=== PATIENT | female | born 1990 | race Caucasian/White ===

== ENCOUNTER → 2019-09-22 10:05 | Outpatient (CLI) | payer OTHER, MEDICAID, SELFPAY | PROVIDERS: Visit Provider Physician Assistant | DX: R30.0 Dysuria (principal) | CPT/HCPCS: 87086 ==

== ENCOUNTER → 2019-12-06 10:06 | Outpatient (CLI) | payer OTHER, MEDICAID, SELFPAY | PROVIDERS: PCP Physician Assistant; Referring Provider Physician Assistant; Visit Provider Family Medicine | DX: E11.628 Type 2 diabetes mellitus with other skin complications (principal); S81.802A Unspecified open wound, left lower leg, initial encounter; L03.116 Cellulitis of left lower limb; E11.40 Type 2 diabetes mellitus with diabetic neuropathy, unspecified; E66.01 Morbid (severe) obesity due to excess calories; Z68.43 Body mass index [BMI] 50.0-59.9, adult | CPT/HCPCS: 87070; 87075; 87077; 87186; 87205; 97597; 99203; 99213 ==

== ENCOUNTER → 2019-12-13 13:53 | Outpatient (CLI) | payer OTHER, MEDICAID, SELFPAY | PROVIDERS: PCP Physician Assistant; Referring Provider Physician Assistant; Visit Provider Family Medicine | DX: E11.628 Type 2 diabetes mellitus with other skin complications (principal); S81.802A Unspecified open wound, left lower leg, initial encounter; L03.116 Cellulitis of left lower limb; L08.9 Local infection of the skin and subcutaneous tissue, unspecified | CPT/HCPCS: 36415; 85025; 85651; 86140; 97597; 99213 ==

== ENCOUNTER → 2019-12-13 14:59 | Outpatient (CLI) | payer OTHER, MEDICAID, SELFPAY ==
[2019-12-13 16:35] LABS: Add Manual Diff / Slide Review NO; Basophils Absolute Auto 200 /uL (0-100); Basophils Percent Auto 1.3 % (0-2); Eosinophils Absolute Auto 500 /uL (0-450); Eosinophils Percent Auto 2.6 % (2-4); Hematocrit 35.2 % (36-46); Hemoglobin 11.5 g/dL (12.0-16.0); Lymphocytes Absolute Auto 4600 /uL (1100-4500); Lymphocytes Percent Auto 25.6 % (25-40); Mean Corpuscular HGB Conc 32.7 % (30-36); Mean Corpuscular Hemoglobin 25.4 PG (26-34); Mean Corpuscular Volume 77.9 fL (80-100); Monocytes Absolute Auto 1600 /uL (0-900); Monocytes Percent Auto 8.7 % (3-14); Neutrophils Absolute Auto 11100 /uL (1500-7000); Neutrophils Percent Auto 61.8 % (50-75); Platelet Count 272 X10^3/uL (150-400); Red Blood Cell Count 4.52 X10^6/uL (4.0-5.2); Red Cell Distribution Width 14.8 % (11.6-14.8)
[2019-12-13 17:08] LABS: Erythrocyte Sedimentation Rate 50 MM/HR (0-20)
== END ==
PROVIDERS: PCP Physician Assistant; Referring Provider Family Medicine; Visit Provider Family Medicine
DX: L08.9 Local infection of the skin and subcutaneous tissue, unspecified (principal)
CPT/HCPCS: 36415; 85025; 85651; 86140

== ENCOUNTER → 2019-12-20 14:46 | Outpatient (CLI) | payer OTHER, MEDICAID, SELFPAY | PROVIDERS: PCP Physician Assistant; Referring Provider Physician Assistant; Visit Provider Family Medicine | DX: L53.9 Erythematous condition, unspecified (principal); E11.622 Type 2 diabetes mellitus with other skin ulcer; L97.221 Non-pressure chronic ulcer of left calf limited to breakdown of skin | CPT/HCPCS: 99212; 99213 ==

== ENCOUNTER → 2021-07-12 12:41 | Outpatient (CLI) | payer OTHER, MEDICAID, SELFPAY ==
[2021-07-12 13:50] LABS: Hemoglobin A1C% w Est Avg Glu 5.5 % (4.0-6.0)
== END ==
PROVIDERS: PCP Physician Assistant; Referring Provider Physician Assistant; Visit Provider Physician Assistant
DX: F90.0 Attention-deficit hyperactivity disorder, predominantly inattentive type (principal)
CPT/HCPCS: 36415; 83036

== ENCOUNTER → 2021-07-23 10:08 | Outpatient (CLI) | payer OTHER, MEDICAID, SELFPAY ==
--- NOTE | 2021-07-23 10:09 | DI.RAD.S_ITS ---
PROCEDURE: XR WRIST RT MIN 3V INDICATIONS: rigth wrist pain around ulnar styloid TECHNIQUE: 4 views of the wrist were acquired. COMPARISON: None. FINDINGS: Bones: No fractures or dislocations. No suspicious bony lesions. Scaphoid view: Scaphoid is intact. Soft tissues: No suspicious soft tissue calcifications. IMPRESSION: No fracture. No osseous lesion. If symptoms and/or clinical suspicion for pathology persists, further assessment with repeat radiographs (7-10 days) or advanced imaging (e.g. CT, MRI or bone scan) should be considered. Dictated by: Jacqueline Mccoy MD, PhD on 07/23/2021 at 10:46 Approved by: Jacqueline Mccoy MD, PhD on 07/23/2021 at 10:48
== END ==
PROVIDERS: PCP Physician Assistant; Referring Provider Physician Assistant; Visit Provider Physician Assistant
DX: S60.211A Contusion of right wrist, initial encounter (principal); X58.XXXA Exposure to other specified factors, initial encounter
CPT/HCPCS: 73110

== ENCOUNTER → 2021-08-03 12:15 | Outpatient (CLI) | payer OTHER, MEDICAID, SELFPAY ==
[2021-08-03 12:30] LABS: Add Manual Diff / Slide Review NO; Basophils Absolute Auto 100 /uL (0-100); Basophils Percent Auto 0.7 % (0-2); Eosinophils Absolute Auto 200 /uL (0-450); Eosinophils Percent Auto 0.9 % (2-4); Hematocrit 35.4 % (36-46); Hemoglobin 11.2 g/dL (12.0-16.0); Lymphocytes Absolute Auto 4200 /uL (1100-4500); Mean Corpuscular HGB Conc 31.8 % (30-36); Mean Corpuscular Hemoglobin 24.8 PG (26-34); Mean Corpuscular Volume 78.1 fL (80-100); Monocytes Absolute Auto 1100 /uL (0-900); Monocytes Percent Auto 6.5 % (3-14); Neutrophils Absolute Auto 11200 /uL (1500-7000); Neutrophils Percent Auto 66.9 % (50-75); Platelet Count 402 X10^3/uL (150-400); Red Blood Cell Count 4.53 X10^6/uL (4.0-5.2); Red Cell Distribution Width 14.9 % (11.6-14.8); White Blood Cell Count 16.7 X10^3/uL (4.5-11.0)
[2021-08-03 12:52] LABS: Iron 27 ug/dL (37-170)
[2021-08-03 13:06] LABS: Percent Iron Saturation 8 % (15-50); Total Iron Binding Capacity 360 ug/dL (265-497)
[2021-08-03 13:28] LABS: Ferritin 29 ng/mL (6-137)
== END ==
PROVIDERS: PCP Physician Assistant; Referring Provider Physician Assistant; Visit Provider Physician Assistant
DX: D50.9 Iron deficiency anemia, unspecified (principal)
CPT/HCPCS: 36415; 82728; 83540; 83550; 85025

== ENCOUNTER 2022-01-09 13:13 | Emergency (ER) | payer OTHER, MEDICAID, SELFPAY ==
[2022-01-09 13:16] VITALS: BP 132/65; PULSE 82; RESP 16; TEMP 36.6; O2SAT 98; BMI 47.4
--- NOTE | 2022-01-09 13:22 | DI.RAD.S_ITS ---
PROCEDURE: XR CHEST 1V INDICATIONS: chest pain TECHNIQUE: One view of the chest was acquired. COMPARISON: [facility], CR, XR CHEST 2 VIEWS, 09/03/2015, 16:39. FINDINGS: Surgical changes and devices: None. Lungs and pleura: Lungs are clear. No pleural effusions or pneumothorax. Mediastinum: Mediastinal contours appear normal. Heart size is normal. Bones and chest wall: No suspicious bony lesions. Overlying soft tissues appear unremarkable. IMPRESSION: No acute cardiopulmonary disease process. Dictated by: Jacqueline Mccoy MD, PhD on 01/09/2022 at 13:54 Approved by: Jacqueline Mccoy MD, PhD on 01/09/2022 at 13:54
[2022-01-09 13:38] VITALS: BP 140/74; PULSE 83; O2SAT 100
[2022-01-09 13:39] LABS: Add Manual Diff / Slide Review NO; Basophils Absolute Auto 100 /uL (0-100); Basophils Percent Auto 1.2 % (0-2); Eosinophils Absolute Auto 100 /uL (0-450); Hematocrit 36.7 % (36-46); Hemoglobin 12.2 g/dL (12.0-16.0); Lymphocytes Absolute Auto 3600 /uL (1100-4500); Lymphocytes Percent Auto 29.2 % (25-40); Mean Corpuscular HGB Conc 33.2 % (30-36); Mean Corpuscular Volume 78.2 fL (80-100); Monocytes Absolute Auto 1300 /uL (0-900); Monocytes Percent Auto 10.4 % (3-14); Neutrophils Absolute Auto 7100 /uL (1500-7000); Neutrophils Percent Auto 58.2 % (50-75); Platelet Count 348 X10^3/uL (150-400); Red Blood Cell Count 4.69 X10^6/uL (4.0-5.2); Red Cell Distribution Width 15.2 % (11.6-14.8); White Blood Cell Count 12.2 X10^3/uL (4.5-11.0)
[2022-01-09 13:55] LABS: Alanine Aminotransferase 17 IU/L (<35); Albumin 4.6 g/dL (3.5-5.0); Albumin Globulin Ratio 1.2 (1.0-2.8); Alkaline Phosphatase 72 U/L (38-126); Aspartate Aminotransferase 23 IU/L (14-36); BUN Creatinine Ratio 14.3 (6-22); Bilirubin Total 0.4 mg/dL (0.2-1.3); Blood Urea Nitrogen 11 mg/dL (7-17); Calcium 9.2 mg/dL (8.4-10.2); Carbon Dioxide 31 mmol/L (22-32); Chloride 101 mmol/L (98-107); Creatine Kinase 35 U/L (30-135); Estimated Glomerular Filt Rate > 60 mL/min (>60); Globulin 3.9 g/dL (1.7-4.1); Glucose 100 mg/dL (70-100); HEMOLYSIS < 15 (0-50); Lipase 48 U/L (23-300); Magnesium 1.8 mg/dL (1.6-2.3); Potassium 3.7 mmol/L (3.4-5.1); Sodium 138 mmol/L (137-145); Total Protein 8.5 g/dL (6.3-8.2)
[2022-01-09 14:00] VITALS: BP 141/80; PULSE 89; RESP 18; O2SAT 98
[2022-01-09 14:06] LABS: Troponin I < 0.012 ng/mL (0.01-0.034)
[2022-01-09 14:11] LABS: COVID19 -Nasal RAPID Negative (Negative)
[2022-01-09 14:30] VITALS: BP 126/71; PULSE 81; RESP 19; O2SAT 96
--- NOTE | 2022-01-09 14:38 | ED.CHESTPAIN ---
HPI - Chest Pain <Rebeka Parra PA-C - Last Filed: 01/09/22 18:40> General Chief Complaint: Chest Pain Stated Complaint: Chest pains, sent from phys Time Seen by Provider: 01/09/22 13:48 Source: patient Mode of arrival: Ambulatory Limitations: no limitations History of Present Illness HPI narrative: Patient is a 31-year-old female presenting with chest pain and pressure for the last 4 days. She describes the sensation as a 10 lb weight on her chest with occasional pain that resolves immediately. Pressure is constant and is not affected by inspiration, expiration, movement, or positional changes. She states that the pressure was not present when she woke up this morning but gradually reappeared throughout the day. She has a history of anxiety and took 0.5 mg of lorazepam on Friday that did not affect the chest pressure. She had similar symptoms in August that resolved on its own after a few days. She also does water aerobics regularly. She is in no pain currently. She was seen by her PCP this morning who told her to come into the ER for further evaluation. Related Data Home Medications Medication Instructions Recorded Confirmed pregabalin 100 mg capsule (Lyrica) 100 mg PO TID 09/22/19 08/29/21 lisinopril 20 1 tab PO DAILY 07/23/21 08/29/21 mg-hydrochlorothiazide 25 mg tablet dextroamphetamine-amphetamine ER 10 mg PO DAILY cap 08/29/21 08/29/21 10 mg 24hr capsule,extend release dextroamphetamine-amphetamine ER 30 mg PO DAILY cap 08/29/21 08/29/21 30 mg 24hr capsule,extend release zolpidem 5 mg tablet 5 mg PO BEDTIME PRN tab 08/29/21 08/29/21 Allergies Allergy/AdvReac Type Severity Reaction Status Date / Time cephalexin [From Keflex] Allergy Intermediate Rash Verified 01/09/22 13:21 linezolid Allergy Intermediate Rash Verified 01/09/22 13:21 metronidazole [From Flagyl] AdvReac Intermediate Vomiting Verified 08/29/21 09:46 Review of Systems <Rebeka Parra PA-C - Last Filed: 01/09/22 18:40> Review of Systems ROS Unobtainable: All systems reviewed & are unremarkable except as noted in HPI and below Constitutional Constitutional: Denies chills, Denies fatigue, Denies fever(s), Denies headache(s) and Denies weakness Eyes Eyes: Denies change in vision, Denies irritation and Denies loss of vision ENT Ears, Nose, Mouth, and Throat: Denies dizziness, Denies headache(s), Denies neck pain, Denies sore throat and Denies throat swelling Cardiovascular Cardiovascular: Reports as per HPI, Reports chest pain, Reports chest pain at rest, Denies syncope, Denies rapid heart rate, Denies irregular heart rhythm, Denies lightheadedness, Denies radiating jaw, neck or arm pain, Denies palpitations, Denies dyspnea and Denies orthopnea Respiratory Respiratory: Denies chest congestion, Denies cough, Denies pain on inspiration, Denies dyspnea and Denies wheezing Gastrointestinal Gastrointestinal: Denies abdominal pain, Reports dyspepsia, Denies diarrhea, Denies nausea and Denies vomiting Genitourinary Genitourinary: Denies hematuria, Denies flank pain, Denies urinary incontinence and Denies urinary urgency Musculoskeletal Musculoskeletal: Denies back pain, Denies muscle weakness, Denies neck pain, Denies numbness and Denies tingling Integumentary/Breasts Skin/Breast: Denies pruritus, Denies erythema, Denies rash and Denies wounds Neurologic Neurologic: Denies dizziness, Denies syncope, Denies headache(s), Denies loss of vision, Denies numbness, Denies tingling and Denies weakness Psychiatric Psychiatric: Reports anxiety Endocrine Endocrine: Denies fatigue, Denies flushing and Denies palpitations Hematologic/Lymphatic Hematologic/Lymphatic: Reports system reviewed and no additional complaints, except as documented Allergic/Immunologic Allergic/Immunologic: Denies urticaria, Denies throat swelling and Denies wheezing Patient History <Rebeka Parra PA-C - Last Filed: 01/09/22 18:40> Medical History Abnormal uterine bleeding ADHD Amenorrhea BP (high blood pressure) Chronic diarrhea Contusion of right wrist DM type 2 (diabetes mellitus, type 2) Elevated erythrocyte sedimentation rate Endometrial polyp Fibroids Herpesviral infection Hirsutism History of PCOS Hyperlipidemia Iron deficiency anemia Menorrhagia with regular cycle Neuropathy Rectal bleeding Uterine leiomyoma UTI (urinary tract infection) Vitamin B 12 deficiency Surgical History H/O colonoscopy History of bone marrow biopsy History of endoscopy History of tonsillectomy and adenoidectomy Hx of cholecystectomy Family History Father Myocardial infarction Diabetes mellitus Heart disease Mother Diverticulitis Brother ADHD Social History Smoking Status: Never smoker Smoking Status: Never smoker alcohol intake frequency: 0-2 drinks per day Substance Use Type: does not use Exam <Rebeka Parra PA-C - Last Filed: 01/09/22 18:40> Narrative Exam Narrative: GENERAL: 31 year old patient appears stated age. Well-developed patient, in mild distress. HEAD: Atraumatic. Normocephalic. EYES: Pupils equal round and reactive. Extraocular motions intact. No scleral icterus. No injection or drainage. ENT: Nose without bleeding, purulent drainage. Throat without erythema, tonsillar hypertrophy or exudate. Airway patent. NECK: Trachea midline. Non tender CARDIOVASCULAR: Regular rate and rhythm without murmurs, gallops, or rubs. Tender to palpation on right anterior chest wall. RESPIRATORY: Clear to auscultation. Breath sounds equal bilaterally. No wheezes, rales, or rhonchi. GASTROINTESTINAL: Abdomen soft, non-tender, nondistended. EXTREMITIES: No edema or joint tenderness. BACK: Nontender without deformity or crepitance. No flank tenderness. NEURO: AOx3. SKIN: No rash or erythema of visible areas Initial Vital Signs Initial Vital Signs: Vital Signs Temperature 97.8 F 01/09/22 13:16 Pulse Rate 82 01/09/22 13:16 Respiratory Rate 16 01/09/22 13:16 Blood Pressure 132/65 01/09/22 13:16 Pulse Oximetry 98 01/09/22 13:16 Course <Rebeka Parra PA-C - Last Filed: 01/09/22 18:40> Orders Ordered: ED Orders 01/09/22 13:22 XR chest 1V Stat EKG-12 Lead Stat 01/09/22 13:27 Complete Blood Count AUTO DIFF Stat Comprehensive Metabolic Panel Stat Lipase Stat Magnesium Stat Troponin & CK Cardiac Panel Stat 01/09/22 13:45 COVID19 -Nasal RAPID/Pre-Proc Stat Vital Signs Vital signs: Vital Signs - 8 hr 01/09/22 13:16 01/09/22 13:38 01/09/22 14:00 Temperature 97.8 F Pulse Rate 82 83 89 Respiratory Rate 16 18 Blood Pressure 132/65 140/74 141/80 H Pulse Oximetry 98 100 98 01/09/22 14:30 01/09/22 15:00 01/09/22 15:17 Temperature Pulse Rate 81 77 76 Respiratory Rate 19 20 18 Blood Pressure 126/71 119/63 119/63 Pulse Oximetry 96 98 100 MDM - Chest Pain <Rebeka Parra PA-C - Last Filed: 01/09/22 18:40> Lab Data Result diagrams: 01/09/22 13:27 01/09/22 13:27 Labs: Lab Results 01/09/22 01/09/22 01/09/22 Range/Units 13:27 13:27 13:45 WBC 12.2 H (4.5-11.0) X10^3/uL RBC 4.69 (4.0-5.2) X10^6/uL Hgb 12.2 (12.0-16.0) g/dL Hct 36.7 (36-46) % MCV 78.2 L (80-100) fL MCH 26.0 (26-34) PG MCHC 33.2 (30-36) % RDW 15.2 H (11.6-14.8) % Plt Count 348 (150-400) X10^3/uL Neut % (Auto) 58.2 (50-75) % Lymph % (Auto) 29.2 (25-40) % [place] % (Auto) 10.4 (3-14) % Eos % (Auto) 1.0 L (2-4) % Baso % (Auto) 1.2 (0-2) % Neut # (Auto) 7100 H (8552-6198) /uL Lymph # (Auto) 3600 (1568-2117) /uL [place] # (Auto) 1300 H (0-900) /uL Eos # (Auto) 100 (0-450) /uL Baso # (Auto) 100 (0-100) /uL Sodium 138 (137-145) mmol/L Potassium 3.7 (3.4-5.1) mmol/L Chloride 101 (98-107) mmol/L Carbon Dioxide 31 (22-32) mmol/L BUN 11 (7-17) mg/dL Creatinine 0.77 (0.52-1.04) mg/dL Estimated GFR > 60 (>60) mL/min BUN/Creatinine Ratio 14.3 (6-22) Glucose 100 (70-100) mg/dL Calcium 9.2 (8.4-10.2) mg/dL Magnesium 1.8 (1.6-2.3) mg/dL Total Bilirubin 0.4 (0.2-1.3) mg/dL AST 23 (14-36) IU/L ALT 17 (<35) IU/L Alkaline Phosphatase 72 (38-126) U/L Total Creatine Kinase 35 (30-135) U/L CK-MB (CK-2) TNP CK-MB (CK-2) Rel Index TNP Troponin I < 0.012 (0.01-0.034) ng/mL Total Protein 8.5 H (6.3-8.2) g/dL Albumin 4.6 (3.5-5.0) g/dL Globulin 3.9 (1.7-4.1) g/dL Albumin/Globulin Ratio 1.2 (1.0-2.8) Lipase 48 (23-300) U/L SARS-CoV-2 (PCR) Negative (Negative) MDM Narrative Medical decision making narrative: Patient is a 31-year-old female presenting with chest pain and pressure for 4 days. All labs and imaging came back as normal. On physical exam her right midsternal anterior chest wall is tender to palpation. Based under HPI and physical exam this is likely a muscle strain of her chest wall. A differential diagnosis could be chest pressure due to anxiety. I instructed her to rest, ice, and to take ibuprofen as needed. She should follow-up with her PCP if chest pressure does not improve within a few days. She was instructed to return to the ER with worsening symptoms of increasing chest pain, shortness of breath, or fever. Patient verbalized understanding of discharge diagnosis and return precautions. . Discharge Plan Departure Patient Disposition: Home Clinical Impression: Chest pain Qualifiers: Chest pain type: unspecified Qualified Code(s): R07.9 - Chest pain, unspecified Chest wall muscle strain Qualifiers: Encounter type: initial encounter Qualified Code(s): S29.011A - Strain of muscle and tendon of front wall of thorax, initial encounter Instructions: DI for Muscle Strain, DI for Chest Pain Activity Restrictions/Additional Instructions: *You have been diagnosed with chest wall pain and muscle strain. You can take ibuprofen with food every 4-6 hours as needed for pain and drink plenty of fluids. You can also ice the area for 15 minutes every 4-6 hours. Please rest and refrain from exercise until chest pressure and pain subsides. Please return to the ER if your chest pressure continues to worsen, or if you have any concerning symptoms such as sharp chest pain, shortness of breath, or fever. *What to do: *Please continue to take your regular medications as directed. [ ] New medication prescriptions sent to your pharmacy: [ ] [ ] New medication written as a paper prescription [X] No new medications given *Please follow up with your primary care provider in 2-3 days, call for an appointment. Let them know you were seen in the Emergency Department and that we ask that you be seen in follow up. We will electronically transmit a record of today's note if your PCP is in our system *If you do not have a primary care provider please contact the [facility] at [phone] and they can help get you set up with a doctor in the community. *Return to Emergency Department if you should have any new, worsening or concerning symptoms, such as [fever greater than 101 F, shaking chills, worsening pain, persistent vomiting or other bothersome symptoms] Prescriptions: No Action pregabalin [Lyrica] 100 mg capsule 100 mg PO TID 0RF lisinopril-hydrochlorothiazide 20-25 mg tablet 1 tab PO DAILY 0RF dextroamphetamine-amphetamine 30 mg capsule,extended release 24hr 30 mg PO DAILY 0RF Label Comments: TAKE 1 CAPSULE BY MOUTH IN THE MORNING DAILY FOR 30 DAYS dextroamphetamine-amphetamine 10 mg capsule,extended release 24hr 10 mg PO DAILY 0RF Label Comments: TAKE 1 CAPSULE BY MOUTH IN THE MORNING ONCE DAILY - TO BE TAKEN WITH 30MG ADDERAL XL CAPSULES FOR 30 DAYS zolpidem 5 mg tablet 5 mg PO BEDTIME PRN0RF Referrals: Viki Mccarthy PA-C [Primary Care Provider] -
[2022-01-09 15:00] VITALS: BP 119/63; PULSE 77; RESP 20; O2SAT 98
[2022-01-09 15:17] VITALS: BP 119/63; PULSE 76; RESP 18; O2SAT 100
== END 2022-01-09 15:18 | disposition home or self-care (01) ==
PROVIDERS: Emergency Medicine; Emergency Provider Physician Assistant; PCP Physician Assistant
DX: R07.9 Chest pain, unspecified (principal); S29.011A Strain of muscle and tendon of front wall of thorax, initial encounter; X58.XXXA Exposure to other specified factors, initial encounter; Z20.822 Contact with and (suspected) exposure to COVID-19
CPT/HCPCS: 36415; 71045; 80053; 82550; 83690; 83735; 84484; 85025; 87635; 93005; 93010; 99283; 99284; C9803

== ENCOUNTER → 2022-06-11 13:02 | Outpatient (CLI) | payer OTHER, MEDICAID, SELFPAY ==
[2022-06-11 13:27] LABS: Semen 30 min. Liquification? Yes
[2022-06-11 13:28] LABS: Final Volume 0.5 mL; Initial Volume 1.5 mL
== END ==
PROVIDERS: Referring Provider Obstetrics & Gynecology; Visit Provider Obstetrics & Gynecology
DX: N97.0 Female infertility associated with anovulation (principal)
CPT/HCPCS: 58323

== ENCOUNTER → 2022-11-29 12:08 | Outpatient (CLI) | payer OTHER, SELFPAY ==
--- NOTE | 2022-11-29 12:10 | DI.US.S_ITS ---
PROCEDURE: US OB <= 14 WEEKS FETUS INDICATIONS: DATES OUTSIDE/PRIOR DATING DATA: Last menstrual period (LMP): October 06, 2022. LMP-based estimated date of delivery (MARGUERITE): July 22, 2023. First dating scan (date and location): November 29, 2022. Estimated date of delivery (MARGUERITE) from first dating scan: July 29, 2023. TECHNIQUE: Real-time scanning was performed of the fetus and maternal pelvic organs, with image documentation. Endovaginal scanning was also performed to better visualize the fetus and maternal ovaries. COMPARISON: [facility], US, PELVIC COMPLETE, 10/30/2022, 9:15. FINDINGS: Embryo: There is a single intrauterine gestational sac measuring approximately 5 weeks and 3 days based off mean gestational sac diameter of approximately 0.7 cm. No pole seen. No yolk sac visualized. Heart rate: Not applicable Maternal organs: Ovaries demonstrate 2 complex right ovarian cyst. Largest measures approximately 2.7 x 1.7 x 2.5 cm. Left ovary is normal. There is a posterior uterine fibroid measuring 2.6 x 2.5 x 3.2 cm. IMPRESSION: 1. Single intrauterine gestational sac identified measuring approximately 5 weeks and 3 days based mean gestational sac diameter. No pole or cardiac activity identified at this time. Recommend short interval follow-up ultrasound in 14 days to document expected progression of . 2. Complicated right ovarian cysts. 3. A 3.2 cm posterior uterine fibroid. We strive to produce accurate, complete, and clear reports of imaging services. To assist us in improving patient care, this report was composed using standard report templates and voice recognition software. Therefore, it may contain abnormal punctuation, insertions and/or omissions. Occasional wrong-word or sound-alike substitutions may occur. Though we review the report and make efforts to correct it, we do recommend that the report be read carefully in proper context to recognize any text inaccuracies. Dictated by: Edward Amador M.D. on 11/29/2022 at 13:02 Approved by: Edward Amador M.D. on 11/29/2022 at 13:07
== END ==
PROVIDERS: Referring Provider Obstetrics & Gynecology; Visit Provider Obstetrics & Gynecology
DX: Z36.87 Encounter for antenatal screening for uncertain dates (principal); O34.81 Maternal care for other abnormalities of pelvic organs, first trimester; N83.291 Other ovarian cyst, right side; O34.11 Maternal care for benign tumor of corpus uteri, first trimester; D25.9 Leiomyoma of uterus, unspecified; Z3A.01 Less than 8 weeks gestation of pregnancy
CPT/HCPCS: 76801; 76817

== ENCOUNTER → 2022-12-11 15:12 | Outpatient (CLI) | payer OTHER, SELFPAY ==
[2022-12-11 16:27] LABS: HCG Quantitative /Beta subunit 14081 mIU/mL
[2022-12-12 06:10] LABS: Labcorp Hemoglobin (Hb) A1c 5.9 % (4.8-5.6)
== END ==
PROVIDERS: Referring Provider Obstetrics & Gynecology; Visit Provider Obstetrics & Gynecology
DX: O20.9 Hemorrhage in early pregnancy, unspecified (principal)
CPT/HCPCS: 83036; 84702

== ENCOUNTER → 2022-12-12 16:10 | Outpatient (CLI) | payer OTHER, SELFPAY ==
--- NOTE | 2022-12-12 16:11 | DI.US.S_ITS ---
PROCEDURE: US OB <= 14 WEEKS FETUS INDICATIONS: early , check viability OUTSIDE/PRIOR DATING DATA: Last menstrual period (LMP): 10/15/2022 LMP-based estimated date of delivery (MARGUERITE): 07/22/2023 First dating scan (date and location): 11/29/2022 Estimated date of delivery (MARGUERITE) from first dating scan: 07/29/2023 TECHNIQUE: Real-time scanning was performed of the fetus and maternal pelvic organs, with image documentation. Endovaginal scanning was also performed to better visualize the fetus and maternal ovaries. COMPARISON: [facility], US, US OB <= 14 WEEKS FETUS, 12/11/2022, 15:07. FINDINGS: Single intrauterine gestational sac without internal contents. No evidence of implantation bleed. There is a posterior uterine fibroid measuring 4.0 x 3.4 x 3.0 cm. Right ovarian cyst measures 2.7 cm. Left ovary unremarkable. Both ovaries have appropriate echotexture and vascularity. No adnexal mass or free fluid. IMPRESSION: Small intrauterine gestational sac without internal contents. Differential possibilities include normal early , demise, and pseudo sac with non-visualized ectopic . Approved by: Da Alonso M.D. on 12/12/2022 at 16:39
== END ==
PROVIDERS: Referring Provider Obstetrics & Gynecology; Visit Provider Obstetrics & Gynecology
DX: O36.80X0 Pregnancy with inconclusive fetal viability, not applicable or unspecified (principal)
CPT/HCPCS: 76801; 76817

== ENCOUNTER → 2022-12-13 11:45 | Outpatient (CLI) | payer OTHER, SELFPAY ==
[2022-12-13 13:41] LABS: HCG Quantitative /Beta subunit 14503 mIU/mL
== END ==
PROVIDERS: Referring Provider Obstetrics & Gynecology; Visit Provider Obstetrics & Gynecology
DX: Z34.90 Encounter for supervision of normal pregnancy, unspecified, unspecified trimester (principal)
CPT/HCPCS: 36415; 84702

== ENCOUNTER 2022-12-19 10:42 | Day surgery (SDC) | payer OTHER, SELFPAY ==
[2022-12-18 08:32] VITALS: BMI 48.0
[2022-12-19] VITALS (8 sets, daily range): BP systolic 104–149; BP diastolic 69–92; PULSE 80–706; RESP 12–24; TEMP 36.2–36.4; O2SAT 97–100; BMI 50.1
--- NOTE | 2022-12-19 | PATH_ITS ---
[facility] Accession Number: [id number] No. of containers..01 Tissue . 01 Material submitted: . product of conception - PRODUCTS OF CONCEPTION . 01 Diagnosis: Uterine Contents: Immature chorionic villi with hydropic degeneration, decidual tissues and gestational endometrium. Negative for changes of gestatioal trophoblastic disease. MRV 12/23/2022 1641 Local . 01 Electronically signed: . Saaida Collado MD, Pathologist NPI- [id number] . 01 Gross description: . The specimen is received in formalin labeled with the patient's name, , and products of conception, and consists of multiple posada to red-brown, spongy soft tissue fragments admixed with hemorrhagic material aggregating to 7.4 x 5.2 x 1.3 cm. No tissue is identified. [facility] sections are submitted in cassettes A1-A2. ([id number]) /R 12/21/2022 1152 Local . 01 Pathologist provided ICD-10: O02.0 . 01 CPT . 412991 Specimen Comment: A courtesy copy of this report has been sent to [phone] Performed at: 01 [facility] [address] [place] [address] [address], [place], [place] [id number] MD Mundo Bravo MD Phone: [phone]
[2022-12-19] MEDS: LACTATED RINGERS 1,000 ML 100 ML IV (11:22)
--- NOTE | 2022-12-19 12:35 | P.HPOB_ITS ---
History of Present Illness History of Present Illness Reason for admission: other (Blighted ovum) Narrative: Radha Paetl is a 32 year old female with a blighted ovum here for a Suction D&C [facility] Medical History (Updated 12/04/22 @ 14:47 by Jessica Chowdhury, RN) Abnormal Pap smear of cervix (~2017) Abnormal uterine bleeding ADHD (~2019) Allergies Amenorrhea Anemia BP (high blood pressure) (~2015) Chronic diarrhea Contusion of right wrist DM type 2 (diabetes mellitus, type 2) (~2018) Elevated erythrocyte sedimentation rate Endometrial polyp Fibroids Fibromyalgia (~2019) GERD (gastroesophageal reflux disease) Heavy menstrual period Herpesviral infection Hirsutism History of PCOS Hyperlipidemia Infertility Iron deficiency anemia Irregular menstrual cycle Irritable bowel syndrome Kidney stones Leukocytosis Menorrhagia with regular cycle Neuropathy Neuropathy of both feet Ovarian cyst Painful menstrual periods Patient desires Rectal bleeding UTI (urinary tract infection) Vitamin B 12 deficiency Surgical History (Updated 12/18/22 @ 08:43 by India Hogan RN) Amputation toe (~2020) Anesthesia H/O colonoscopy H/O colposcopy with cervical biopsy History of bone marrow biopsy History of endoscopy History of tonsillectomy and adenoidectomy Hx of cholecystectomy Uterine leiomyoma Family History (Updated 02/27/22 @ 22:07 by Randa Aldrich) Father Myocardial infarction Diabetes mellitus Heart disease Mother Diverticulitis Brother ADHD Diabetes mellitus Social History marital status: unmarried,living together number of children: 2 (s/o's children) household members: significant other and children lives independently: Yes caregiver/support person: Yes housing: other (mobile home) pets and animals: Yes education level: vocational occupational status: employed current occupational exposures/hazards: No special nasir needs: No travel history: over 6 months ago seatbelt use: always water heater temp set < 120 deg: Yes working smoke detector in home: Yes fire extinguisher in home: Yes carbon monox detector in home: Yes firearms in home: No do you feel safe at home: Yes Smoking Status: Never smoker second hand exposure: No alcohol intake: former substance use type: does not use during the past year weight has: decreased > 10 lbs (intentional, through [facility]) well-balanced diet: rarely or never daily servings fruits/ve-1 caffeine: No (not usually) Type(s) of exercise: walking frequency: daily duration: 15-30 minutes/day Meds Home Medications and Allergies Home Medications Medication Instructions Recorded Confirmed Type lisinopril 20 1 tab PO DAILY 07/23/21 12/19/22 History mg-hydrochlorothiazide 25 mg tablet lisdexamfetamine 70 mg capsule 70 mg PO DAILY 02/06/22 12/19/22 History (Vyvanse) pregabalin 100 mg capsule (Lyrica) 200 mg PO TID 02/06/22 12/19/22 History semaglutide 0.25 mg or 0.5 mg (2 0.5 mg SUBCUT QWEEK 02/06/22 12/19/22 History mg/1.5 mL) subcutaneous pen injector (Ozempic) progesterone micronized 200 mg 200 mg PO DAILY #90 caps 06/27/22 12/19/22 Rx capsule (Prometrium) prenat.vits,kelley,sdi-nvpo-kvtil 1 tab PO DAILY 12/04/22 12/19/22 History Allergies Allergy/AdvReac Type Severity Reaction Status Date / Time cephalexin [From Keflex] Allergy Intermediate Rash Verified 12/19/22 11:01 linezolid Allergy Intermediate Rash Verified 12/19/22 11:01 metronidazole [From Flagyl] AdvReac Intermediate Vomiting Verified 12/19/22 11:01 Exam Vital Signs (past 8 hours): - 12/19/22 11:08 Temperature 97.6 F Pulse Rate 85 Respiratory Rate 12 Blood Pressure 104/79 Pulse Oximetry 99 Narrative Exam Narrative: HEENT: No thyromegaly, no anterior cervical or supraclavicular lymphadenopathy. Lungs:Clear to auscultation bilaterally, no wheezes. Cardiovascular: Regular rate and rhythm, no murmurs, rubs, or gallops. Abdomen: Well-healed right upper quadrant laparoscopy scars. No hepatosplenomegaly. No masses palpable. External genitalia: Normal Vagina: Normal Cervix: Normal Bimanual exam: 8 Week size uterus. Mobile. Extremities: No edema Assessment & Plan Assessment & Plan narrative: Assessment: 32-year-old 3 para 0 with a blighted ovum at 8 weeks' gestation Plan: Suction D&C The risks, benefits, and alternatives to the procedure were explained to the patient. The risks including bleeding, infection, and uterine perforation. She understands these risks and agrees to proceed. A full par Q was held and consent form was signed. Time Spent With Patient Time with patient: less than 30 minutes
--- NOTE | 2022-12-19 12:37 | SUR.OPER ---
Lithotomy on padded OR bed, head on pillow, arms secured on padded arm boards at <90 degrees abduction. Legs secured in padded yellow fins stirrups.
--- NOTE | 2022-12-19 12:40 | PM.PREOP ---
Pre-operative Note COVID-19 Criteria for continued procedure: Non-surgical alternatives not available or appropriate per current SOC Interval Note History & Physical reviewed/Exam performed by Physician: Yes Changes to H&P: No H&P completed within 30 days and has changed as indicated here:: 12/19/22
[2022-12-19] MEDS: HYDROMORPHONE 2 MG INJ IV ×2 (13:32→13:38)
--- NOTE | 2022-12-19 13:33 | PM.GYNOP.1 ---
Operative Date/Time/Diagnoses Date of procedure: 12/19/22 Time of procedure: 13:33 Pre-op diagnosis: Blighted ovum Post-op diagnosis: same Procedure & Clinicians Procedure: Procedures Operation Date: 12/19/22 12:15 Actual Procedure Side Surgeon alan Larios&Nohemi Banerjee MD Indications: Blighted ovum Surgeon: Dilia Banerjee Anesthesia Type: General (LMA) Operative Notes Findings: 8 wk size anteverted uterus Large amount of products of conception Closure Type: not applicable Specimen(s): products of conception Estimated blood loss (mL): 100 Blood products transfused: none Procedure in detail: After informed consent was obtained, the patient was taken to the operating room where she was placed in the dorsal supine position. After adequate LMA general anesthesia was achieved, she was placed in the dorsal lithotomy position, and prepped and draped in the usual sterile fashion. A time-out was performed. A bivalve speculum was placed into the vagina and the anterior lip of the cervix was grasped with a single-tooth tenaculum. The cervical os was sequentially dilated to the #9 Hegar dilator. The #8 curved plastic curette passed easily into the endometrial cavity. Several passes with suction revealed a large amount of fluid and then tissue. Several more passes revealed blood only. The instruments were removed from the uterus. The single-tooth tenaculum was removed from the anterior lip of the cervix. The bivalve speculum was removed from the vagina. Sponge, lap, and instrument counts were correct x2. The patient tolerated the procedure well, and was taken to PACU in stable condition. Complications: none Post-operative Condition: stable Disposition: PACU Plan for aftercare: Homw after recovery
[2022-12-19] MEDS: ONDANSETRON 4 MG/2 ML INJ IV (13:37)
[2022-12-19] MEDS: ACETAMINOPHEN 325 MG TABLET 975 MG PO (13:50)
[2022-12-19] MEDS: OXYCODONE IR 5 MG TABLET PO (13:50)
== END 2022-12-19 14:24 | disposition home or self-care (01) ==
PROVIDERS: Referring Provider Obstetrics & Gynecology; Visit Provider Obstetrics & Gynecology
PROC: (CPT 58120; principal; 2022-12-19 12:15)
DX: O02.0 Blighted ovum and nonhydatidiform mole (principal)
CPT/HCPCS: 59820; J1100; J1170; J1885; J2250; J2405; J2704; J3010

== ENCOUNTER → 2023-12-25 14:06 | Outpatient (CLI) | payer OTHER, SELFPAY ==
[2023-12-25 15:03] LABS: HCG Quantitative /Beta subunit 26.6 mIU/mL
== END ==
PROVIDERS: Referring Provider Obstetrics & Gynecology; Visit Provider Obstetrics & Gynecology
DX: N96 Recurrent pregnancy loss (principal); N91.2 Amenorrhea, unspecified
CPT/HCPCS: 36415; 84702

== ENCOUNTER → 2023-12-29 14:59 | Outpatient (CLI) | payer OTHER, SELFPAY ==
[2023-12-29 16:29] LABS: HCG Quantitative /Beta subunit 143.7 mIU/mL
== END ==
PROVIDERS: Referring Provider Obstetrics & Gynecology; Visit Provider Obstetrics & Gynecology
DX: N96 Recurrent pregnancy loss (principal); N91.2 Amenorrhea, unspecified
CPT/HCPCS: 36415; 84702

== ENCOUNTER → 2024-01-13 15:54 | Outpatient (CLI) | payer OTHER, SELFPAY ==
[2024-01-13 19:29] LABS: HCG Quantitative /Beta subunit 19288 mIU/mL
== END ==
PROVIDERS: Referring Provider Obstetrics & Gynecology; Visit Provider Obstetrics & Gynecology
DX: N91.2 Amenorrhea, unspecified (principal)
CPT/HCPCS: 36415; 84702

== ENCOUNTER 2024-01-14 20:37 | Emergency (ER) | payer OTHER, SELFPAY ==
--- NOTE | 2024-01-14 20:45 | DI.US.S_ITS ---
PROCEDURE: US OB <= 14 WEEKS FETUS INDICATIONS: 7 weeks EGA with bleeding OUTSIDE/PRIOR DATING DATA: Last menstrual period (LMP): 11/27/23. LMP-based estimated date of delivery (MARGUERITE): 09/02/24. First dating scan (date and location): 01/14/24. Estimated date of delivery (MARGUERITE) from first dating scan: 09/07/24. TECHNIQUE: Real-time scanning was performed of the fetus and maternal pelvic organs, with image documentation. Endovaginal scanning was also performed to better visualize the fetus and maternal ovaries. COMPARISON: [facility], OB <= 14 WEEKS FETUS, 12/12/2022, 16:31. FINDINGS: An intrauterine is present including a single pole with an average crown-rump length of 4.0 mm corresponding to a six week one day plus or minus four day gestation. There is detectable cardiac activity in the fetus at a rate of 111 beats per minute. A normal yolk sac is present. There is a small perigestational hemorrhage inferior to the gestational sac encompassing about 10% of the sac circumference. The maternal cervix is closed and there is a simple nabothian cyst present. The left ovary contains a cyst with low-level internal echoes and lace-like appearance measuring 2.9 cm. There is slight peripheral vascularity. The right ovary also contains a dominant follicle measuring 2.9 cm with a few small septations. There is mild peripheral vascularity. No adnexal fluid on either side. There is an intramural uterine fibroid along the posterior fundus measuring up to 3.3 cm. IMPRESSION: Intrauterine with low heart rate likely secondary to early gestational age six weeks one day. Sonographic due date is 09/07/24. Continue trending of beta HCG is recommended to confirm viability. There is a small perigestational hemorrhage. The cervix remains closed. There are bilateral peripherally vascular mildly hemorrhagic dominant follicles within the ovaries, potentially two corpus luteum cysts. No adnexal fluid. We strive to produce accurate, complete, and clear reports of imaging services. To assist us in improving patient care, this report was composed using standard report templates and voice recognition software. Therefore, it may contain abnormal punctuation, insertions and/or omissions. Occasional wrong-word or sound-alike substitutions may occur. Though we review the report and make efforts to correct it, we do recommend that the report be read carefully in proper context to recognize any text inaccuracies. Dictated by: Rafaela Delgado M.D. on 01/14/2024 at 23:43 Approved by: Rafaela Delgado M.D. on 01/14/2024 at 23:50
[2024-01-14 20:47] VITALS: BP 135/76; PULSE 75; RESP 16; TEMP 36.5; O2SAT 100; BMI 40.7
[2024-01-14 21:30] LABS: Appearance Urine UA CLOUDY; Bilirubin Urine UA 1+ (NEGATIVE); Color Urine UA RED; Glucose Urine UA NEGATIVE (Negative); Ketones Urine UA NEGATIVE (NEGATIVE); Leukocyte Esterase Urine UA NEGATIVE (NEGATIVE); Nitrite Urine UA NEGATIVE (Negative); Occult Blood Urine UA 3+ (Negative); Protein Urine UA 2+ (Negative); Specific Gravity Urine UA >=1.030 (1.000-1.035); Urobilinogen Urine UA 0.2 E.U./dL (0.2)
[2024-01-14 21:33] LABS: pH Urine UA 5.5 (4.5-8.0)
[2024-01-14 21:38] LABS: Bacteria Urine Occasional (0-1); Culture Indicated Urine Cult Not Indicated; Ictotest Urine Negative (Negative); RBC Urine >100/HPF (0-5/HPF); Squamous Epithelial Cell Urine 1-5 /HPF (0-5/HPF); Urine Volume 10mL (spun); WBC Urine 0-1/HPF (0-5/HPF)
[2024-01-14 21:53] LABS: Add Manual Diff / Slide Review NO; Basophils Absolute Auto 100 /uL (0-100); Basophils Percent Auto 0.5 % (0-2); Eosinophils Absolute Auto 100 /uL (0-450); Eosinophils Percent Auto 0.9 % (2-4); Hematocrit 31.3 % (36-46); Hemoglobin 10.4 g/dL (12.0-16.0); Lymphocytes Absolute Auto 3500 /uL (1100-4500); Lymphocytes Percent Auto 22.7 % (25-40); Mean Corpuscular HGB Conc 33.3 % (30-36); Mean Corpuscular Hemoglobin 26.6 PG (26-34); Mean Corpuscular Volume 79.7 fL (80-100); Monocytes Absolute Auto 1000 /uL (0-900); Monocytes Percent Auto 6.4 % (3-14); Neutrophils Absolute Auto 10700 /uL (1500-7000); Neutrophils Percent Auto 69.5 % (50-75); Platelet Count 304 X10^3/uL (150-400); Red Blood Cell Count 3.92 X10^6/uL (4.0-5.2); Red Cell Distribution Width 14.3 % (11.6-14.8); White Blood Cell Count 15.4 X10^3/uL (4.5-11.0)
[2024-01-14 22:14] LABS: Alanine Aminotransferase 13 IU/L (<35); Albumin 3.8 g/dL (3.5-5.0); Albumin Globulin Ratio 1.3 (1.0-2.8); Alkaline Phosphatase 64 U/L (38-126); Aspartate Aminotransferase 19 IU/L (14-36); BUN Creatinine Ratio 17.2 (6-22); Bilirubin Total 0.5 mg/dL (0.2-1.3); Blood Urea Nitrogen 11 mg/dL (7-17); Calcium 8.8 mg/dL (8.4-10.2); Carbon Dioxide 28 mmol/L (22-32); Chloride 102 mmol/L (98-107); Estimated Glomerular Filt Rate > 60 mL/min (>60); Glucose 92 mg/dL (70-100); HEMOLYSIS < 15 (0-50); Lipase 44 U/L (23-300); Potassium 2.9 mmol/L (3.4-5.1); Sodium 137 mmol/L (137-145); Total Protein 6.8 g/dL (6.3-8.2)
[2024-01-14 23:23] LABS: HCG Quantitative /Beta subunit 22151 mIU/mL
--- NOTE | 2024-01-15 00:03 | ED.GENADULT ---
HPI - General Adult General Chief complaint: Vaginal Bleeding Stated complaint: 7 weeks , just started bleeding Time Seen by Provider: 01/14/24 23:02 Source: patient Mode of arrival: Ambulatory History of Present Illness HPI narrative: Patient is a at approximately 7 weeks EGA is here for evaluation a couple hours of vaginal bleeding. Is on vitamins. No fevers. No urinary symptoms. Related Data Home Medications Medication Instructions Recorded Confirmed pregabalin 100 mg capsule (Lyrica) 200 mg PO TID 02/06/22 01/05/24 prenat.vits,kelley,[id number] 1 tab PO DAILY 12/04/22 01/05/24 chlorthalidone 25 mg tablet 25 mg PO DAILY 01/05/24 01/05/24 Previous Rx's Medication Instructions Recorded progesterone micronized 200 mg 200 mg PO DAILY #90 caps 12/30/23 capsule (Prometrium) Allergies Allergy/AdvReac Type Severity Reaction Status Date / Time cephalexin [From Keflex] Allergy Intermediate Rash Verified 01/05/24 14:33 linezolid Allergy Intermediate Rash Verified 01/05/24 14:33 metronidazole [From Flagyl] AdvReac Intermediate Vomiting Verified 01/05/24 14:33 Review of Systems Constitutional Constitutional: Reports system reviewed and no additional complaints, except as documented Gastrointestinal Gastrointestinal: Reports system reviewed and no additional complaints, except as documented Genitourinary Genitourinary: Reports system reviewed and no additional complaints, except as documented Patient History Medical History GERD (gastroesophageal reflux disease) Patient desires Leukocytosis Painful menstrual periods Ovarian cyst Irregular menstrual cycle Infertility Heavy menstrual period Abnormal Pap smear of cervix (~2017) Kidney stones Anemia Iron deficiency anemia Rectal bleeding Hyperlipidemia Amenorrhea Endometrial polyp Herpesviral infection Elevated erythrocyte sedimentation rate Hirsutism Abnormal uterine bleeding Vitamin B 12 deficiency Menorrhagia with regular cycle Fibroids Chronic diarrhea History of PCOS Contusion of right wrist UTI (urinary tract infection) Surgical History (Updated 01/05/24 @ 14:44 by Jessica Chowdhury RN) [place] teeth extracted H/O colposcopy with cervical biopsy Anesthesia Amputation toe (~2020) History of bone marrow biopsy Uterine leiomyoma History of endoscopy H/O colonoscopy Hx of cholecystectomy (~2012) History of tonsillectomy and adenoidectomy Family History (Updated 01/05/24 @ 14:45 by Jessica Chowdhury RN) Father Myocardial infarction Diabetes mellitus Heart disease Mother Diverticulitis Brother ADHD Diabetes mellitus Social History marital status: unmarried,living together number of children: 2 (s/o's children) household members: significant other and children lives independently: Yes caregiver/support person: Yes housing: house (mobile home) pets and animals: Yes (2 dogs, 2 cats) education level: vocational occupational status: employed (lunch lady) current occupational exposures/hazards: No special nasir needs: No travel history: recent (domestic only) seatbelt use: always water heater temp set < 120 deg: Yes working smoke detector in home: Yes fire extinguisher in home: Yes carbon monox detector in home: Yes firearms in home: No do you feel safe at home: Yes Smoking Status: Never smoker second hand exposure: No alcohol intake: former (rarely when not ) substance use type: does not use during the past year weight has: decreased > 10 lbs (gastric sleeve 07/2023) well-balanced diet: rarely or never daily servings fruits/ve-1 (1-2/day (limited by gastric sleeve) caffeine: Yes (soft drink some days) Type(s) of exercise: walking frequency: daily duration: 15-30 minutes/day Smoking Status: Never smoker alcohol intake frequency: holidays/special occasions only Substance Use Type: does not use Exam Initial Vital Signs Initial Vital Signs: Vital Signs Temperature 97.7 F 01/14/24 20:47 Pulse Rate 75 01/14/24 20:47 Respiratory Rate 16 01/14/24 20:47 Blood Pressure 135/76 01/14/24 20:47 Pulse Oximetry 100 01/14/24 20:47 Oxygen Delivery Method Room Air 01/14/24 20:47 Const General: cooperative, comfortable and No ill appearing HENMT Head: normal to inspection GI Inspection: normal to inspection Neuro General: patient alert and patient awake Course Orders Ordered: ED Orders 01/14/24 20:45 US OB <= 14 weeks fetus Stat 01/14/24 21:04 Ictotest Urine Stat Urinalysis and Microscopic Stat 01/14/24 21:40 ABO RH Type Stat Complete Blood Count AUTO DIFF Stat Comprehensive Metabolic Panel Stat HCG Quantitative /Beta subunit Stat Lipase Stat Vital Signs Vital signs: Vital Signs - 8 hr 01/14/24 20:47 01/15/24 00:20 Temperature 97.7 F Pulse Rate 75 77 Respiratory Rate 16 18 Blood Pressure 135/76 108/59 L Pulse Oximetry 100 98 Oxygen Delivery Method Room Air Room Air Medical Decision Making Medical Records Medical records reviewed: Yes I reviewed the patient's medical records. Lab Data Lab results reviewed: Yes I reviewed the patient's lab results. 01/14/24 21:40 01/14/24 21:40 Labs: Lab Results 01/14/24 01/14/24 Range/Units 21:04 21:40 WBC 15.4 H (4.5-11.0) X10^3/uL RBC 3.92 L (4.0-5.2) X10^6/uL Hgb 10.4 L (12.0-16.0) g/dL Hct 31.3 L (36-46) % MCV 79.7 L (80-100) fL MCH 26.6 (26-34) PG MCHC 33.3 (30-36) % RDW 14.3 (11.6-14.8) % Plt Count 304 (150-400) X10^3/uL Neut % (Auto) 69.5 (50-75) % Lymph % (Auto) 22.7 L (25-40) % [place] % (Auto) 6.4 (3-14) % Eos % (Auto) 0.9 L (2-4) % Baso % (Auto) 0.5 (0-2) % Neut # (Auto) 76824 H (3140-5344) /uL Lymph # (Auto) 3500 (0035-2407) /uL [place] # (Auto) 1000 H (0-900) /uL Eos # (Auto) 100 (0-450) /uL Baso # (Auto) 100 (0-100) /uL Sodium 137 (137-145) mmol/L Potassium 2.9 L (3.4-5.1) mmol/L Chloride 102 (98-107) mmol/L Carbon Dioxide 28 (22-32) mmol/L BUN 11 (7-17) mg/dL Creatinine 0.64 (0.52-1.04) mg/dL Estimated GFR > 60 (>60) mL/min BUN/Creatinine Ratio 17.2 (6-22) Glucose 92 (70-100) mg/dL Calcium 8.8 (8.4-10.2) mg/dL Total Bilirubin 0.5 (0.2-1.3) mg/dL AST 19 (14-36) IU/L ALT 13 (<35) IU/L Alkaline Phosphatase 64 (38-126) U/L Total Protein 6.8 (6.3-8.2) g/dL Albumin 3.8 (3.5-5.0) g/dL Globulin 3.0 (1.7-4.1) g/dL Albumin/Globulin Ratio 1.3 (1.0-2.8) Lipase 44 (23-300) U/L HCG, Quant 14642 mIU/mL Urine Color Red Urine Appearance Cloudy Urine pH 5.5 (4.5-8.0) Ur Specific [place] >=1.030 H (1.000-1.035) Urine Protein 2+ H (Negative) Urine Glucose (UA) Negative (Negative) g/dL Urine Ketones Negative (NEGATIVE) Urine Occult Blood 3+ H (Negative) Urine Nitrate Negative (Negative) Urine Bilirubin 1+ H (NEGATIVE) Ur Bilirubin Confirm Negative (Negative) Urine Urobilinogen 0.2 (0.2) E.U./dL Ur Leukocyte Esterase Negative (NEGATIVE) Urine RBC >100/hpf H (0-5/HPF) Urine WBC 0-1/hpf (0-5/HPF) Ur Squamous Epith Cells 1-5 /hpf (0-5/HPF) Urine Bacteria Occasional (0-1) (None) Ur Culture Indicated? Cult not indicated Vol Urine Centrifuged 10ml (spun) Blood Type O Positive Imaging Data US - OB: Radiologist's Impression: PROCEDURE: US OB <= 14 WEEKS FETUS INDICATIONS: 7 weeks EGA with bleeding OUTSIDE/PRIOR DATING DATA: Last menstrual period (LMP): 11/27/23. LMP-based estimated date of delivery (MARGUERITE): 09/02/24. First dating scan (date and location): 01/14/24. Estimated date of delivery (MARGUERITE) from first dating scan: 09/07/24. TECHNIQUE: Real-time scanning was performed of the fetus and maternal pelvic organs, with image documentation. Endovaginal scanning was also performed to better visualize the fetus and maternal ovaries. COMPARISON: [facility], , US OB <= 14 WEEKS FETUS, 12/12/2022, 16:31. FINDINGS: An intrauterine is present including a single pole with an average crown-rump length of 4.0 mm corresponding to a six week one day plus or minus four day gestation. There is detectable cardiac activity in the fetus at a rate of 111 beats per minute. A normal yolk sac is present. There is a small perigestational hemorrhage inferior to the gestational sac encompassing about 10% of the sac circumference. The maternal cervix is closed and there is a simple nabothian cyst present. The left ovary contains a cyst with low-level internal echoes and lace-like appearance measuring 2.9 cm. There is slight peripheral vascularity. The right ovary also contains a dominant follicle measuring 2.9 cm with a few small septations. There is mild peripheral vascularity. No adnexal fluid on either side. There is an intramural uterine fibroid along the posterior fundus measuring up to 3.3 cm. IMPRESSION: Intrauterine with low heart rate likely secondary to early gestational age six weeks one day. Sonographic due date is 09/07/24. Continue trending of beta HCG is recommended to confirm viability. There is a small perigestational hemorrhage. The cervix remains closed. There are bilateral peripherally vascular mildly hemorrhagic dominant follicles within the ovaries, potentially two corpus luteum cysts. No adnexal fluid. MDM Narrative Medical decision making narrative: Rh positive. Leukocytosis of 15 but no specific source of infection found. This is most likely related to her . Urinalysis is unremarkable. Ultrasound shows intrauterine . I discussed all this with the patient and her at bedside. She has a follow-up with OB in approximately 10 days from now. Will have her keep that appointment. She was given return precautions and follow-up instructions. She expressed understanding and agreement. Discharge Plan Departure Patient Disposition: Home Clinical Impression: Threatened miscarriage Instructions: DI for Vaginal Bleeding During Activity Restrictions/Additional Instructions: Keep all of your scheduled medical appointments to include your 1st appointment with the OB doctor in the next week. Continue to take the vitamins. Return to the emergency department for new or worsening symptoms. Prescriptions: No Action pregabalin [Lyrica] 100 mg capsule 200 mg PO TID progesterone micronized [Prometrium] 200 mg capsule 200 mg PO DAILY Qty: 90 1RF Patient Comments: Held currently chlorthalidone 25 mg tablet 25 mg PO DAILY prenat.vits,kelley,[id number] Tablet 1 tab PO DAILY Referrals: Dilia Banerjee MD [Primary Care Provider] - Stand Alone Forms: Patient Portal/API
[2024-01-15 00:20] VITALS: BP 108/59; PULSE 77; RESP 18; O2SAT 98
== END 2024-01-15 00:22 | disposition home or self-care (01) ==
PROVIDERS: Emergency Provider Emergency Medicine; PCP Obstetrics & Gynecology
DX: O20.0 Threatened abortion (principal); Z3A.01 Less than 8 weeks gestation of pregnancy
CPT/HCPCS: 76801; 76817; 80053; 81001; 83690; 84702; 85025; 86900; 86901; 99281; 99283

== ENCOUNTER 2024-01-19 10:11 | Emergency (ER) | payer OTHER, SELFPAY ==
[2024-01-19 10:30] VITALS: BP 144/79; PULSE 89; RESP 18; TEMP 36.7; O2SAT 100; BMI 40.7
--- NOTE | 2024-01-19 10:34 | DI.US.S_ITS ---
PROCEDURE: US OB <= 14 WEEKS FETUS INDICATIONS: 7.5 weeks /bleeding OUTSIDE/PRIOR DATING DATA: Last menstrual period (LMP): 11/27/2023. LMP-based estimated date of delivery (MARGUERITE): 09/02/2024. First dating scan (date and location): 01/14/2024. Estimated date of delivery (MARGUERITE) from first dating scan: 09/07/2024. TECHNIQUE: Real-time scanning was performed of the fetus and maternal pelvic organs, with image documentation. Endovaginal scanning was also performed to better visualize the fetus and maternal ovaries. COMPARISON: [facility], OB <= 14 WEEKS FETUS, 01/14/2024, 22:05. FINDINGS: Embryo: A gestational sac is seen containing a pole measuring 0.8 cm, consistent with 6 weeks and 5 days. A yolk sac is seen measuring 3 mm. Perigestational bleed is increased in size measuring 4.4 x 2.2 x 0.5 cm, previously 1.8 x 2.3 x 1.3 cm. Inferiorly there is a heterogeneous region measuring 3.7 x 3.0 x 1.3 cm, previously 0.6 x 0.7 x 0.5 cm. Heart rate: 128 Maternal organs: Bilateral ovarian complex cysts measuring up to 2.6 cm on the left and 2.5 cm on the right. Posterior intramural uterine fibroid measuring 2.7 cm. IMPRESSION: 1. Single live intrauterine consistent with 6 weeks and 5 days. 2. Perigestational bleeds are increased in size compared to prior, as described above. 3. Complex bilateral ovarian cysts are similar to prior, recommend continued attention on follow-up. 4. Stable intramural fibroid. We strive to produce accurate, complete, and clear reports of imaging services. To assist us in improving patient care, this report was composed using standard report templates and voice recognition software. Therefore, it may contain abnormal punctuation, insertions and/or omissions. Occasional wrong-word or sound-alike substitutions may occur. Though we review the report and make efforts to correct it, we do recommend that the report be read carefully in proper context to recognize any text inaccuracies Dictated by: Deon Chavarria M.D. on 01/19/2024 at 12:47 Approved by: Deon Chavarria M.D. on 01/19/2024 at 12:51
[2024-01-19 10:53] LABS: Add Manual Diff / Slide Review NO; Basophils Absolute Auto 100 /uL (0-100); Basophils Percent Auto 0.4 % (0-2); Eosinophils Absolute Auto 100 /uL (0-450); Eosinophils Percent Auto 0.7 % (2-4); Hematocrit 33.4 % (36-46); Lymphocytes Absolute Auto 3000 /uL (1100-4500); Lymphocytes Percent Auto 20.4 % (25-40); Mean Corpuscular Hemoglobin 26.3 PG (26-34); Mean Corpuscular Volume 79.7 fL (80-100); Monocytes Absolute Auto 900 /uL (0-900); Monocytes Percent Auto 5.9 % (3-14); Neutrophils Absolute Auto 10800 /uL (1500-7000); Neutrophils Percent Auto 72.6 % (50-75); Platelet Count 339 X10^3/uL (150-400); Red Blood Cell Count 4.19 X10^6/uL (4.0-5.2); Red Cell Distribution Width 14.4 % (11.6-14.8); White Blood Cell Count 14.8 X10^3/uL (4.5-11.0)
[2024-01-19 11:04] LABS: Alanine Aminotransferase 13 IU/L (<35); Albumin Globulin Ratio 1.1 (1.0-2.8); Alkaline Phosphatase 64 U/L (38-126); Aspartate Aminotransferase 16 IU/L (14-36); BUN Creatinine Ratio 10.3 (6-22); Bilirubin Total 0.4 mg/dL (0.2-1.3); Blood Urea Nitrogen 6 mg/dL (7-17); Calcium 9.5 mg/dL (8.4-10.2); Carbon Dioxide 29 mmol/L (22-32); Chloride 104 mmol/L (98-107); Estimated Glomerular Filt Rate > 60 mL/min (>60); Globulin 3.7 g/dL (1.7-4.1); Glucose 102 mg/dL (70-100); HEMOLYSIS < 15 (0-50); Potassium 3.4 mmol/L (3.4-5.1); Sodium 138 mmol/L (137-145); Total Protein 7.7 g/dL (6.3-8.2)
[2024-01-19 11:45] LABS: HCG Quantitative /Beta subunit 37259 mIU/mL
--- NOTE | 2024-01-19 13:11 | ED_ITS ---
HPI - <Marion Pagan PA-C - Last Filed: 01/19/24 13:18> General Chief complaint: Vaginal Bleeding Stated complaint: 7.5wk Preg, bleeding Time Seen by Provider: 01/19/24 11:13 Source: patient Mode of arrival: Ambulatory Limitations: no limitations History of Present Illness HPI Narrative: 33-year-old female with past medical history multiple miscarriages presents to the ED for continued bleeding during . Patient was seen in the ED on 01/14/2024 for vaginal bleeding during , ultrasound showed a live IUP dated 6 weeks and 1 day gestation. There was a perigestational bleed, bilateral complex ovarian cysts and a fibroid noted on the ultrasound as well. Patient is here in the ED today since she noted that her vaginal bleeding increased yesterday, she passed a large clot after which her abdominal pain and bleeding have reduced. Patient denies chest pain, shortness of breath, lightheadedness, dizziness, syncope. Related Data Home Medications Medication Instructions Recorded Confirmed pregabalin 100 mg capsule (Lyrica) 200 mg PO TID 02/06/22 01/05/24 prenat.vits,kelley,yly-zqve-nwsdo 1 tab PO DAILY 12/04/22 01/05/24 chlorthalidone 25 mg tablet 25 mg PO DAILY 01/05/24 01/05/24 Previous Rx's Medication Instructions Recorded progesterone micronized 200 mg 200 mg PO DAILY #90 caps 12/30/23 capsule (Prometrium) Allergies Allergy/AdvReac Type Severity Reaction Status Date / Time cephalexin [From Keflex] Allergy Intermediate Rash Verified 01/05/24 14:33 linezolid Allergy Intermediate Rash Verified 01/05/24 14:33 metronidazole [From Flagyl] AdvReac Intermediate Vomiting Verified 01/05/24 14:33 Review of Systems <Marion Pagan PA-C - Last Filed: 01/19/24 13:18> Constitutional Constitutional: Denies chills, Denies fatigue, Denies fever(s), Denies frequent falls, Denies lethargy and Denies weakness Eyes Eyes: Denies change in vision, Denies eye discharge, Denies irritation and Denies loss of vision ENT Ears, Nose, Mouth, and Throat: Denies change in voice, Denies dizziness, Denies neck pain, Denies sore throat and Denies throat swelling Cardiovascular Cardiovascular: Denies chest pain, Denies irregular heart rhythm, Denies lightheadedness, Denies palpitations, Denies dyspnea, Denies dyspnea on exertion and Denies orthopnea Respiratory Respiratory: Denies cough, Denies dyspnea, Denies dyspnea on exertion and Denies wheezing Gastrointestinal Gastrointestinal: Denies abdominal pain, Denies change in bowel habits, Denies tenesmus, Denies diarrhea, Denies nausea and Denies vomiting Genitourinary Genitourinary: Reports abnormal vaginal bleeding Musculoskeletal Musculoskeletal: Denies neck pain and Denies numbness Integumentary/Breasts Skin/Breast: Denies pruritus, Denies erythema, Denies rash and Denies wounds Neurologic Neurologic: Denies behavioral changes, Denies confusion, Denies dizziness, Denies frequent falls, Denies loss of vision, Denies numbness and Denies weakness Psychiatric Psychiatric: Denies anxiety, Denies behavioral changes, Denies confusion, Denies depression, Denies homicidal ideation and Denies suicidal ideation Endocrine Endocrine: Denies fatigue, Denies flushing and Denies palpitations Hematologic/Lymphatic Hematologic/Lymphatic: Denies easy bruising Allergic/Immunologic Allergic/Immunologic: Denies urticaria, Denies throat swelling and Denies wheezing Exam <Marion Pagan PA-C - Last Filed: 01/19/24 13:18> Narrative Exam Narrative: Const General:?cooperative, healthy appearing and comfortable [facility] Head:?normal to inspection Ears:?hearing grossly normal bilaterally Nose:?external nose normal Face and sinus:?normal facial exam and sinuses nontender Mouth:?oral mucosae normal Throat:?posterior oropharynx normal Eyes General:?appearance normal, both eyes and all related structures Neck Neck:?normal visual inspection and no lymphadenopathy noted Resp Effort & Inspection:?normal respiratory effort Auscultation:?clear to auscultation bilaterally Cardio Rate:?regular rate Rhythm:?regular rhythm Neuro General:?patient alert, patient awake and patient oriented x3 Initial Vital Signs Initial Vital Signs: Vital Signs Temperature 98.0 F 01/19/24 10:30 Pulse Rate 89 01/19/24 10:30 Respiratory Rate 18 01/19/24 10:30 Blood Pressure 144/79 H 01/19/24 10:30 Pulse Oximetry 100 01/19/24 10:30 Oxygen Delivery Method Room Air 01/19/24 10:30 <Uvaldo Barahona MD - Last Filed: 01/19/24 19:16> Initial Vital Signs Initial Vital Signs: Vital Signs Temperature 98.0 F 01/19/24 10:30 Pulse Rate 89 01/19/24 10:30 Respiratory Rate 18 01/19/24 10:30 Blood Pressure 144/79 H 01/19/24 10:30 Pulse Oximetry 100 01/19/24 10:30 Oxygen Delivery Method Room Air 01/19/24 10:30 Course <Marion Pagan PA-C - Last Filed: 01/19/24 13:18> Orders Ordered: ED Orders 01/19/24 10:34 US OB <= 14 weeks fetus Stat 01/19/24 10:40 Complete Blood Count AUTO DIFF Stat Comprehensive Metabolic Panel Stat HCG Quantitative /Beta subunit Stat Type and Screen Stat Vital Signs Vital signs: Vital Signs - 8 hr 01/19/24 13:16 Pulse Rate 79 Respiratory Rate 18 Blood Pressure 111/62 <Uvaldo Barahona MD - Last Filed: 01/19/24 19:16> Orders Ordered: ED Orders 01/19/24 10:34 US OB <= 14 weeks fetus Stat 01/19/24 10:40 Complete Blood Count AUTO DIFF Stat Comprehensive Metabolic Panel Stat HCG Quantitative /Beta subunit Stat Type and Screen Stat Vital Signs Vital signs: Vital Signs - 8 hr 01/19/24 13:16 Pulse Rate 79 Respiratory Rate 18 Blood Pressure 111/62 MDM - OB/Uterine Contractions <Marion Pagan PA-C - Last Filed: 01/19/24 13:18> Lab Data 01/19/24 10:40 01/19/24 10:40 Labs: Lab Results 01/19/24 Range/Units 10:40 WBC 14.8 H (4.5-11.0) X10^3/uL RBC 4.19 (4.0-5.2) X10^6/uL Hgb 11.0 L (12.0-16.0) g/dL Hct 33.4 L (36-46) % MCV 79.7 L (80-100) fL MCH 26.3 (26-34) PG MCHC 33.0 (30-36) % RDW 14.4 (11.6-14.8) % Plt Count 339 (150-400) X10^3/uL Neut % (Auto) 72.6 (50-75) % Lymph % (Auto) 20.4 L (25-40) % [place] % (Auto) 5.9 (3-14) % Eos % (Auto) 0.7 L (2-4) % Baso % (Auto) 0.4 (0-2) % Neut # (Auto) 63335 H (8680-6673) /uL Lymph # (Auto) 3000 (4998-0269) /uL [place] # (Auto) 900 (0-900) /uL Eos # (Auto) 100 (0-450) /uL Baso # (Auto) 100 (0-100) /uL Sodium 138 (137-145) mmol/L Potassium 3.4 (3.4-5.1) mmol/L Chloride 104 (98-107) mmol/L Carbon Dioxide 29 (22-32) mmol/L BUN 6 L (7-17) mg/dL Creatinine 0.58 (0.52-1.04) mg/dL Estimated GFR > 60 (>60) mL/min BUN/Creatinine Ratio 10.3 (6-22) Glucose 102 H (70-100) mg/dL Calcium 9.5 (8.4-10.2) mg/dL Total Bilirubin 0.4 (0.2-1.3) mg/dL AST 16 (14-36) IU/L ALT 13 (<35) IU/L Alkaline Phosphatase 64 (38-126) U/L Total Protein 7.7 (6.3-8.2) g/dL Albumin 4.0 (3.5-5.0) g/dL Globulin 3.7 (1.7-4.1) g/dL Albumin/Globulin Ratio 1.1 (1.0-2.8) HCG, Quant 28657 mIU/mL Blood Type O Positive Antibody Screen Negative Urine Dip Bedside Urine Glucose Negative Bedside Urine Bilirubin - Negative Bedside Urine Ketone - Negative Urine Specific [place] 1.015 Bedside Urine Occult Blood +++ Bedside Urine pH 6.0 Bedside Urine Protein +/- 15 Bedside Urine Urobilinogen - Negative Bedside Urine Nitrite - Negative Bedside Urine Leukocytes - Negative Esterase MDM Narrative Medical decision making narrative: 33-year-old female with past medical history multiple miscarriages presents to the ED for continued bleeding during . Concern for intrauterine versus threatened miscarriage versus other. HCG was [place] today which [place] 07229, which is increased since 01/14/2024. HCG was 67927 on 01/14/2024. Ultrasound shows a single live intrauterine consistent with 6 weeks and 5 days, heart rate 128 beats per minute.. Perigestational bleed or increase in size compared to prior. Complex bilateral ovarian cysts are similar to prior. Stable intramural fibroid. Patient is Rh positive. Patient has an appointment with OBGYN Dr. Dilia Banerjee later this week. Discussed findings with patient, need to continue monitoring the . Patient agrees to follow-up with Dr. Banerjee as scheduled. ED return precautions were discussed with patient. Patient verbalized understanding. Medical records reviewed: Yes <Uvaldo Barahona MD - Last Filed: 01/19/24 19:16> Lab Data Labs: Lab Results 01/19/24 Range/Units 10:40 WBC 14.8 H (4.5-11.0) X10^3/uL RBC 4.19 (4.0-5.2) X10^6/uL Hgb 11.0 L (12.0-16.0) g/dL Hct 33.4 L (36-46) % MCV 79.7 L (80-100) fL MCH 26.3 (26-34) PG MCHC 33.0 (30-36) % RDW 14.4 (11.6-14.8) % Plt Count 339 (150-400) X10^3/uL Neut % (Auto) 72.6 (50-75) % Lymph % (Auto) 20.4 L (25-40) % [place] % (Auto) 5.9 (3-14) % Eos % (Auto) 0.7 L (2-4) % Baso % (Auto) 0.4 (0-2) % Neut # (Auto) 74106 H (0264-0392) /uL Lymph # (Auto) 3000 (5122-3567) /uL [place] # (Auto) 900 (0-900) /uL Eos # (Auto) 100 (0-450) /uL Baso # (Auto) 100 (0-100) /uL Sodium 138 (137-145) mmol/L Potassium 3.4 (3.4-5.1) mmol/L Chloride 104 (98-107) mmol/L Carbon Dioxide 29 (22-32) mmol/L BUN 6 L (7-17) mg/dL Creatinine 0.58 (0.52-1.04) mg/dL Estimated GFR > 60 (>60) mL/min BUN/Creatinine Ratio 10.3 (6-22) Glucose 102 H (70-100) mg/dL Calcium 9.5 (8.4-10.2) mg/dL Total Bilirubin 0.4 (0.2-1.3) mg/dL AST 16 (14-36) IU/L ALT 13 (<35) IU/L Alkaline Phosphatase 64 (38-126) U/L Total Protein 7.7 (6.3-8.2) g/dL Albumin 4.0 (3.5-5.0) g/dL Globulin 3.7 (1.7-4.1) g/dL Albumin/Globulin Ratio 1.1 (1.0-2.8) HCG, Quant 77871 mIU/mL Blood Type O Positive Antibody Screen Negative Urine Dip Bedside Urine Glucose Negative Bedside Urine Bilirubin - Negative Bedside Urine Ketone - Negative Urine Specific [place] 1.015 Bedside Urine Occult Blood +++ Bedside Urine pH 6.0 Bedside Urine Protein +/- 15 Bedside Urine Urobilinogen - Negative Bedside Urine Nitrite - Negative Bedside Urine Leukocytes - Negative Esterase Discharge Plan Departure Patient Disposition: Home Clinical Impression: Vaginal bleeding during Instructions: DI for Vaginal Bleeding During Activity Restrictions/Additional Instructions: You were evaluated in the ED today for vaginal bleeding during . The ultrasound today shows a uterine consistent with 6 weeks and 5 days and heart rate of 128 beats per minute. The perigestational bleeds appear to be increased in size compared to the prior ultrasound. There are also complex bilateral ovarian cysts similar to the last ultrasound. Your hCG which is the hormone is also [place]. [place] [address] compared to the last hCG number which was 84855. It is reassuring that you have an appointment with OBGYN Dr. Banerjee later this week since it will be imperative to continue to monitor this with repeat ultrasounds and hCG numbers. Return to the ED if you have worsening symptoms, lightheadedness, chest pain, shortness of breath. Prescriptions: No Action pregabalin [Lyrica] 100 mg capsule 200 mg PO TID progesterone micronized [Prometrium] 200 mg capsule 200 mg PO DAILY Qty: 90 1RF Patient Comments: Held currently chlorthalidone 25 mg tablet 25 mg PO DAILY prenat.vits,kelley,[id number]-[id number] Tablet 1 tab PO DAILY Referrals: Dilia Banerjee MD [Primary Care Provider] - Stand Alone Forms: Patient Portal/API ED Sign-out <Uvaldo Barahona MD - Last Filed: 01/19/24 19:16> Cosign ED Attending Cosignature Attestation: I was immediately available in the department for consultation. I reviewed the documentation. Supervised by Uvaldo Barahona MD.
[2024-01-19 13:16] VITALS: BP 111/62; PULSE 79; RESP 18
== END 2024-01-19 13:30 | disposition home or self-care (01) ==
PROVIDERS: Emergency Medicine; Emergency Provider Student in an Organized Health Care Education/Training Program; PCP Obstetrics & Gynecology
DX: O20.9 Hemorrhage in early pregnancy, unspecified (principal); Z3A.01 Less than 8 weeks gestation of pregnancy
CPT/HCPCS: 36415; 76801; 76817; 80053; 81003; 84702; 85025; 86850; 86900; 86901; 99282; 99283

== ENCOUNTER → 2024-01-23 14:38 | Outpatient (CLI) | payer OTHER, SELFPAY ==
[2024-01-23 18:43] LABS: Urine N gonorrhoeae NOT DETECTED
[2024-01-23 18:45] LABS: Urine Chlamydia NOT DETECTED
== END ==
PROVIDERS: PCP Nurse Practitioner Family; Visit Provider Obstetrics & Gynecology
DX: Z34.01 Encounter for supervision of normal first pregnancy, first trimester (principal); Z3A.08 8 weeks gestation of pregnancy; Z11.3 Encounter for screening for infections with a predominantly sexual mode of transmission
CPT/HCPCS: 87491; 87591

== ENCOUNTER → 2024-02-12 16:09 | Outpatient (CLI) | payer OTHER, SELFPAY ==
[2024-02-12 17:15] LABS: Natera Collection Specimen Collected
[2024-02-12 17:47] LABS: Add Manual Diff / Slide Review NO; Basophils Absolute Auto 100 /uL (0-100); Basophils Percent Auto 0.8 % (0-2); Eosinophils Absolute Auto 300 /uL (0-450); Eosinophils Percent Auto 1.7 % (2-4); Hematocrit 30.2 % (36-46); Hemoglobin 10.1 g/dL (12.0-16.0); Lymphocytes Absolute Auto 3500 /uL (1100-4500); Lymphocytes Percent Auto 21.2 % (25-40); Mean Corpuscular HGB Conc 33.5 % (30-36); Mean Corpuscular Hemoglobin 26.5 PG (26-34); Mean Corpuscular Volume 79.1 fL (80-100); Monocytes Absolute Auto 1200 /uL (0-900); Monocytes Percent Auto 7.4 % (3-14); Neutrophils Absolute Auto 11400 /uL (1500-7000); Neutrophils Percent Auto 68.9 % (50-75); Platelet Count 384 X10^3/uL (150-400); Red Blood Cell Count 3.82 X10^6/uL (4.0-5.2); Red Cell Distribution Width 14.2 % (11.6-14.8); White Blood Cell Count 16.6 X10^3/uL (4.5-11.0)
[2024-02-12 18:07] LABS: Alanine Aminotransferase 10 IU/L (<35); Albumin 3.9 g/dL (3.5-5.0); Albumin Globulin Ratio 1.1 (1.0-2.8); Alkaline Phosphatase 72 U/L (38-126); Aspartate Aminotransferase 16 IU/L (14-36); BUN Creatinine Ratio 13.5 (6-22); Bilirubin Total 0.3 mg/dL (0.2-1.3); Blood Urea Nitrogen 7 mg/dL (7-17); Calcium 9.1 mg/dL (8.4-10.2); Carbon Dioxide 24 mmol/L (22-32); Chloride 107 mmol/L (98-107); Estimated Glomerular Filt Rate > 60 mL/min (>60); Globulin 3.4 g/dL (1.7-4.1); Glucose 99 mg/dL (70-100); HEMOLYSIS < 15 (0-50); Potassium 3.7 mmol/L (3.4-5.1); Sodium 136 mmol/L (137-145); Total Protein 7.3 g/dL (6.3-8.2); Uric Acid 4.3 mg/dL (2.5-6.2)
[2024-02-12 18:08] LABS: Iron 30 ug/dL (37-170)
[2024-02-12 18:25] LABS: Free T4, Direct Thyroxine 0.95 ng/dL (0.78-2.19)
[2024-02-12 18:39] LABS: Thyroid Stimulating Hormone 1.72 uIU/mL (0.47-4.68)
[2024-02-12 18:42] LABS: Ferritin 17 ng/mL (6-137)
[2024-02-12 18:49] LABS: Hepatitis B Surface Antigen NEGATIVE s/c (NEGATIVE); Rubella Antibody IgG 8.6 IU/mL (>15)
[2024-02-12 18:59] LABS: HIV 1 & 2 Ab/Ag 4th Gen Combo NEGATIVE (NEGATIVE); Hep C Virus Ab w/Reflex Quant NEGATIVE s/c (NEGATIVE)
[2024-02-14 08:12] LABS: Varicella IgG Antibody 409 index (Immune >165)
[2024-02-15 08:08] LABS: RPR Screen Non Reactive (Non Reactive)
== END ==
PROVIDERS: Referring Provider Obstetrics & Gynecology; Visit Provider Obstetrics & Gynecology
DX: O09.299 Supervision of pregnancy with other poor reproductive or obstetric history, unspecified trimester (principal); Z3A.10 10 weeks gestation of pregnancy
CPT/HCPCS: 36415; 80053; 80055; 82728; 83036; 83540; 84439; 84443; 84550; 86787; 86803; 86850; 86900; 86901; 87086; 87389

== ENCOUNTER → 2024-02-19 16:43 | Outpatient (CLI) | payer OTHER, SELFPAY ==
[2024-02-19 18:17] LABS: Appearance Urine UA CLEAR; Bilirubin Urine UA NEGATIVE (NEGATIVE); Color Urine UA YELLOW; Glucose Urine UA NEGATIVE (Negative); Ketones Urine UA NEGATIVE (NEGATIVE); Leukocyte Esterase Urine UA NEGATIVE (NEGATIVE); Nitrite Urine UA NEGATIVE (Negative); Occult Blood Urine UA TRACE-INTACT (Negative); Protein Urine UA NEGATIVE (Negative); Specific Gravity Urine UA 1.025 (1.000-1.035); Urobilinogen Urine UA 0.2 E.U./dL (0.2)
[2024-02-19 18:30] LABS: Bacteria Urine Few (2-10); Calcium Oxalate Crystals Urine Moderate; Culture Indicated Urine Cult Not Indicated; RBC Urine None Seen (0-5/HPF); Squamous Epithelial Cell Urine 1-5 /HPF (0-5/HPF); Urine Volume 10mL (spun); WBC Urine 1-5/HPF (0-5/HPF)
== END ==
PROVIDERS: Referring Provider Obstetrics & Gynecology; Visit Provider Obstetrics & Gynecology
DX: R30.0 Dysuria (principal)
CPT/HCPCS: 81001

== ENCOUNTER → 2024-04-02 11:00 | Outpatient (CLI) | payer OTHER, SELFPAY ==
[2024-04-07 20:40] LABS: AFP Value 18.8 ng/mL (.); Gest Age on Col Date 17.1 weeks (.); Gestational Age EDD (.); Insulin Dep Diabetes No (.); OSBR Risk 1IN 10000 (.); Results Report (.); Test Results *Screen Negative* (.)
[2024-04-08 07:43] LABS: PDF SCANNED
== END ==
PROVIDERS: PCP Nurse Practitioner Family; Referring Provider Obstetrics & Gynecology; Visit Provider Obstetrics & Gynecology
DX: Z34.82 Encounter for supervision of other normal pregnancy, second trimester (principal); Z3A.17 17 weeks gestation of pregnancy
CPT/HCPCS: 36415; 82105

== ENCOUNTER → 2024-04-23 15:29 | Outpatient (CLI) | payer OTHER, SELFPAY ==
--- NOTE | 2024-04-23 15:30 | DI.US.S_ITS ---
PROCEDURE: US OB >= 14 WEEKS FETUS INDICATIONS: ANATOMY OUTSIDE/PRIOR DATING DATA: Last menstrual period (LMP): 11/27/2023. LMP-based estimated date of delivery (MARGUERITE): 09/02/2024. First dating scan (date and location): 01/14/2024. Estimated date of delivery (MARGUERITE) from first dating scan: 09/07/2024. The calculations are made using the clinical MARGUERITE of 09/02/2024. TECHNIQUE: Real-time scanning was performed of the fetus, with image documentation and biometric measurements. Endovaginal scanning: Not performed COMPARISON: None. FINDINGS: General: A single living intrauterine gestation is present. Presentation: Breech. Placenta: Placental position is posterior , without low lying placenta measuring 1.7 cm from the edge. Amniotic fluid index: 10 cm, normal range is 5-24 cm. Single deepest vertical pocket is 4.3 cm. heart rate: 150 beats per minute. Maternal cervical canal: 6.1 cm long. Normal lower limit is 2.5 cm. biometrics: Biparietal diameter: 5 cm, 21 weeks 1 day Head circumference: 17.6 cm, 20 weeks 0 days Abdominal circumference: 14.9 cm, 20 weeks 1 day Femur length: 3.4 cm, 20 weeks 5 days Clinically estimated gestational age: 21 weeks 1 day Composite gestational age from present scan: 20 weeks 4 days Estimated weight and percentile: 349 g, 12 percentile Anatomic survey: Neuro: Ventricles are non-dilated at less than 10 mm. Cisterna magna is normal at 3-11 mm. Cerebellum is normal in size and morphology. Nuchal skin fold: Normal at less than 6 mm between 14-21 weeks gestational age. Face: Nose and lips, facial profile are normal. Spine: No evidence for spina bifida. Heart: 4-chambered heart is present, with normal ventricular outflow tracts. Diaphragm: Diaphragm is intact. Stomach: Left-sided stomach is present. Kidneys: No hydronephrosis. Normal is less than 5 mm in 2nd trimester, less than 7 mm in 3rd trimester. Cord: 3-vessel cord has orthotopic insertion. Bladder: Normal in size. Extremities: All 4 extremities identified. IMPRESSION: Single living intrauterine at twenty-one weeks 1 day, MARGUERITE of 09/02/2024. Estimated weight of 349 g, 12 percentile. Low lying placenta, 1.7 cm from the cervical os. Normal anatomy survey otherwise. We strive to produce accurate, complete, and clear reports of imaging services. To assist us in improving patient care, this report was composed using standard report templates and voice recognition software. Therefore, it may contain abnormal punctuation, insertions and/or omissions. Occasional wrong-word or sound-alike substitutions may occur. Though we review the report and make efforts to correct it, we do recommend that the report be read carefully in proper context to recognize any text inaccuracies. Dictated by: Raúl Reddy M.D. on 04/27/2024 at 11:47 Approved by: Raúl Reddy M.D. on 04/27/2024 at 11:50
== END ==
LOC: US 15:30
PROVIDERS: PCP Nurse Practitioner Family; Referring Provider Specialist; Visit Provider Specialist
DX: O44.42 Low lying placenta NOS or without hemorrhage, second trimester (principal); O32.1XX0 Maternal care for breech presentation, not applicable or unspecified; Z3A.21 21 weeks gestation of pregnancy
CPT/HCPCS: 76811

== ENCOUNTER → 2024-04-30 17:14 | Outpatient (CLI) | payer OTHER, SELFPAY | PROVIDERS: PCP Nurse Practitioner Family; Visit Provider Obstetrics & Gynecology | DX: R31.9 Hematuria, unspecified (principal) | CPT/HCPCS: 87086 ==

== ENCOUNTER → 2024-05-28 14:27 | Outpatient (CLI) | payer OTHER, SELFPAY ==
[2024-05-28 14:50] LABS: Hematocrit 30.3 % (36-46)
== END ==
PROVIDERS: PCP Nurse Practitioner Family; Referring Provider Obstetrics & Gynecology; Visit Provider Obstetrics & Gynecology
DX: Z34.82 Encounter for supervision of other normal pregnancy, second trimester (principal); Z3A.26 26 weeks gestation of pregnancy
CPT/HCPCS: 36415; 85014; 85018

== ENCOUNTER → 2024-06-20 11:45 | Outpatient (CLI) | payer OTHER, SELFPAY ==
[2024-06-20 13:39] LABS: Influenza A - CEPHEID Flu A NEGATIVE (NEGATIVE); Influenza B - CEPHEID Flu B NEGATIVE (NEGATIVE); Respiratory Syncytial Virus Negative (Negative)
[2024-06-20 13:40] LABS: COVID-19 CEPHEID 4-PLEX PCR Negative (Negative)
== END ==
PROVIDERS: PCP Nurse Practitioner Family; Visit Provider Nurse Practitioner Family
DX: R05.9 Cough, unspecified (principal); J02.9 Acute pharyngitis, unspecified; R50.9 Fever, unspecified
CPT/HCPCS: 0241U; 87070

== ENCOUNTER 2024-06-27 17:39 | Outpatient (CLI) | payer OTHER, SELFPAY | END 2024-06-27 18:27 | disposition home or self-care (01) | LOC: OB 07-02 15:12 | PROVIDERS: PCP Nurse Practitioner Family; Referring Provider Obstetrics & Gynecology; Visit Provider Specialist | DX: O36.8130 Decreased fetal movements, third trimester, not applicable or unspecified (principal); O16.3 Unspecified maternal hypertension, third trimester; Z3A.29 29 weeks gestation of pregnancy | CPT/HCPCS: 59025; G0378; G0379 ==

== ENCOUNTER → 2024-07-08 14:12 | Outpatient (CLI) | payer OTHER, SELFPAY ==
[2024-07-08 14:55] LABS: Add Manual Diff / Slide Review NO; Basophils Absolute Auto 200 /uL (0-100); Basophils Percent Auto 1.1 % (0-2); Eosinophils Absolute Auto 100 /uL (0-450); Eosinophils Percent Auto 0.8 % (2-4); Hematocrit 30.3 % (36-46); Hemoglobin 9.9 g/dL (12.0-16.0); Lymphocytes Absolute Auto 3200 /uL (1100-4500); Lymphocytes Percent Auto 20.2 % (25-40); Mean Corpuscular HGB Conc 32.9 % (30-36); Mean Corpuscular Hemoglobin 27.1 PG (26-34); Mean Corpuscular Volume 82.3 fL (80-100); Monocytes Absolute Auto 1400 /uL (0-900); Monocytes Percent Auto 8.8 % (3-14); Neutrophils Absolute Auto 10800 /uL (1500-7000); Neutrophils Percent Auto 69.1 % (50-75); Platelet Count 344 X10^3/uL (150-400); Red Blood Cell Count 3.68 X10^6/uL (4.0-5.2); Red Cell Distribution Width 17.1 % (11.6-14.8); White Blood Cell Count 15.6 X10^3/uL (4.5-11.0)
[2024-07-08 15:23] LABS: Alanine Aminotransferase 12 IU/L (<35); Blood Urea Nitrogen 6 mg/dL (7-17); Calcium 9.6 mg/dL (8.4-10.2); Carbon Dioxide 24 mmol/L (22-32); Chloride 104 mmol/L (98-107); Estimated Glomerular Filt Rate > 60 mL/min (>60); Glucose 89 mg/dL (70-100); HEMOLYSIS < 15 (0-50); Potassium 4.1 mmol/L (3.4-5.1); Sodium 134 mmol/L (137-145); Uric Acid 4.1 mg/dL (2.5-6.2)
[2024-07-08 17:58] LABS: Protein (Total) Urine Random 7 mg/dL (0-12)
== END ==
LOC: LAB 14:13
PROVIDERS: Referring Provider Obstetrics & Gynecology; Visit Provider Obstetrics & Gynecology
DX: O14.93 Unspecified pre-eclampsia, third trimester (principal); Z3A.31 31 weeks gestation of pregnancy
CPT/HCPCS: 36415; 80048; 84156; 84460; 84550; 85025

== ENCOUNTER 2024-07-16 15:00 | Outpatient (CLI) | payer OTHER, SELFPAY ==
[2024-07-16 15:36] LABS: Add Manual Diff / Slide Review NO; Basophils Absolute Auto 200 /uL (0-100); Basophils Percent Auto 1.2 % (0-2); Eosinophils Absolute Auto 200 /uL (0-450); Eosinophils Percent Auto 1.1 % (2-4); Hematocrit 32.3 % (36-46); Hemoglobin 10.5 g/dL (12.0-16.0); Lymphocytes Absolute Auto 2600 /uL (1100-4500); Lymphocytes Percent Auto 15.1 % (25-40); Mean Corpuscular HGB Conc 32.5 % (30-36); Mean Corpuscular Hemoglobin 27.1 PG (26-34); Mean Corpuscular Volume 83.2 fL (80-100); Monocytes Absolute Auto 1300 /uL (0-900); Monocytes Percent Auto 7.6 % (3-14); Neutrophils Absolute Auto 12600 /uL (1500-7000); Platelet Count 310 X10^3/uL (150-400); Red Blood Cell Count 3.88 X10^6/uL (4.0-5.2); Red Cell Distribution Width 17.3 % (11.6-14.8); White Blood Cell Count 16.9 X10^3/uL (4.5-11.0)
[2024-07-16 15:49] LABS: Alanine Aminotransferase 12 IU/L (<35); Albumin 3.7 g/dL (3.5-5.0); Albumin Globulin Ratio 1.2 (1.0-2.8); Alkaline Phosphatase 90 U/L (38-126); Aspartate Aminotransferase 21 IU/L (14-36); BUN Creatinine Ratio 13.1 (6-22); Bilirubin Total 0.3 mg/dL (0.2-1.3); Blood Urea Nitrogen 8 mg/dL (7-17); Calcium 9.5 mg/dL (8.4-10.2); Carbon Dioxide 24 mmol/L (22-32); Chloride 104 mmol/L (98-107); Estimated Glomerular Filt Rate > 60 mL/min (>60); Globulin 3.1 g/dL (1.7-4.1); Glucose 84 mg/dL (70-100); HEMOLYSIS < 15 (0-50); Potassium 3.8 mmol/L (3.4-5.1); Sodium 134 mmol/L (137-145); Total Protein 6.8 g/dL (6.3-8.2); Uric Acid 4.4 mg/dL (2.5-6.2)
[2024-07-16 16:00] LABS: Protein (Total) Urine Random 8 mg/dL (0-12); Protein Creatinine Ratio Urine 0.09 GRAM/24H
== END 2024-07-16 16:10 | disposition home or self-care (01) ==
LOC: OB 07-19 11:46
PROVIDERS: Referring Provider Obstetrics & Gynecology; Visit Provider Obstetrics & Gynecology
DX: O16.3 Unspecified maternal hypertension, third trimester (principal); Z3A.32 32 weeks gestation of pregnancy
CPT/HCPCS: 59025; 59050; 80053; 84550; 85025; G0378; G0379

== ENCOUNTER 2024-07-23 10:52 | Observation (INO) | payer OTHER, SELFPAY | END 2024-07-23 13:05 | disposition home or self-care (01) | PROVIDERS: Admitting Provider Obstetrics & Gynecology; Referring Provider Obstetrics & Gynecology; Visit Provider Obstetrics & Gynecology | DX: O16.3 Unspecified maternal hypertension, third trimester (principal); Z3A.33 33 weeks gestation of pregnancy | CPT/HCPCS: 59025; 76815; G0378; G0379 ==

== ENCOUNTER 2024-07-30 14:19 | Outpatient (CLI) | payer OTHER, SELFPAY ==
[2024-07-30 15:27] LABS: Alanine Aminotransferase 12 IU/L (<35); Albumin 3.7 g/dL (3.5-5.0); Albumin Globulin Ratio 1.2 (1.0-2.8); Alkaline Phosphatase 84 U/L (38-126); Aspartate Aminotransferase 21 IU/L (14-36); BUN Creatinine Ratio 14.3 (6-22); Bilirubin Total 0.3 mg/dL (0.2-1.3); Blood Urea Nitrogen 8 mg/dL (7-17); Calcium 9.4 mg/dL (8.4-10.2); Carbon Dioxide 24 mmol/L (22-32); Chloride 105 mmol/L (98-107); Estimated Glomerular Filt Rate > 60 mL/min (>60); Globulin 3.1 g/dL (1.7-4.1); Glucose 89 mg/dL (70-100); HEMOLYSIS < 15 (0-50); Hematocrit 32.3 % (36-46); Hemoglobin 10.5 g/dL (12.0-16.0); Mean Corpuscular HGB Conc 32.5 % (30-36); Mean Corpuscular Hemoglobin 27.1 PG (26-34); Mean Corpuscular Volume 83.3 fL (80-100); Platelet Count 315 X10^3/uL (150-400); Potassium 3.9 mmol/L (3.4-5.1); Red Blood Cell Count 3.87 X10^6/uL (4.0-5.2); Red Cell Distribution Width 16.9 % (11.6-14.8); Sodium 134 mmol/L (137-145); Total Protein 6.8 g/dL (6.3-8.2); Uric Acid 4.4 mg/dL (2.5-6.2); White Blood Cell Count 16.5 X10^3/uL (4.5-11.0)
[2024-07-30 15:28] LABS: Add Manual Diff / Slide Review YES
[2024-07-30 15:39] LABS: Creatinine Urine Random 59.49 mg/dL; Protein (Total) Urine Random 10 mg/dL (0-12); Protein Creatinine Ratio Urine 0.16 GRAM/24H
[2024-07-30 15:53] LABS: Neutrophils Absolute Manual 12375 /uL (3000-5900); RBC Morphology Normal Morphology; Total Cells Counted 100
== END 2024-07-30 14:54 | disposition home or self-care (01) ==
LOC: LABOR 14:23 → OB 08-02 08:47
PROVIDERS: Referring Provider Obstetrics & Gynecology; Visit Provider Obstetrics & Gynecology
DX: O26.893 Other specified pregnancy related conditions, third trimester (principal); R51.9 Headache, unspecified; Z86.79 Personal history of other diseases of the circulatory system; Z3A.34 34 weeks gestation of pregnancy
CPT/HCPCS: 59025; 80053; 84550; 85007; 85025; G0378; G0379

== ENCOUNTER 2024-08-04 18:11 | Outpatient (CLI) | payer OTHER, SELFPAY ==
[2024-08-04 18:47] LABS: Add Manual Diff / Slide Review NO; Basophils Absolute Auto 0 /uL (0-100); Basophils Percent Auto 0.2 % (0-2); Eosinophils Absolute Auto 200 /uL (0-450); Eosinophils Percent Auto 0.9 % (2-4); Hemoglobin 10.1 g/dL (12.0-16.0); Lymphocytes Absolute Auto 2900 /uL (1100-4500); Lymphocytes Percent Auto 17.7 % (25-40); Mean Corpuscular HGB Conc 32.6 % (30-36); Mean Corpuscular Hemoglobin 26.8 PG (26-34); Mean Corpuscular Volume 82.2 fL (80-100); Monocytes Absolute Auto 1300 /uL (0-900); Monocytes Percent Auto 7.6 % (3-14); Neutrophils Absolute Auto 12300 /uL (1500-7000); Neutrophils Percent Auto 73.6 % (50-75); Platelet Count 305 X10^3/uL (150-400); Red Blood Cell Count 3.77 X10^6/uL (4.0-5.2); Red Cell Distribution Width 16.9 % (11.6-14.8); White Blood Cell Count 16.7 X10^3/uL (4.5-11.0)
[2024-08-04] MEDS: ACETAMINOPHEN 325 MG TABLET 975 MG PO (18:47)
[2024-08-04] MEDS: OXYCODONE IR 5 MG TABLET PO (18:48)
[2024-08-04 18:58] LABS: Alanine Aminotransferase 12 IU/L (<35); Albumin 3.4 g/dL (3.5-5.0); Albumin Globulin Ratio 1.1 (1.0-2.8); Alkaline Phosphatase 92 U/L (38-126); Aspartate Aminotransferase 16 IU/L (14-36); BUN Creatinine Ratio 12.5 (6-22); Bilirubin Total 0.3 mg/dL (0.2-1.3); Blood Urea Nitrogen 7 mg/dL (7-17); Calcium 9.3 mg/dL (8.4-10.2); Carbon Dioxide 25 mmol/L (22-32); Chloride 105 mmol/L (98-107); Estimated Glomerular Filt Rate > 60 mL/min (>60); Globulin 3.2 g/dL (1.7-4.1); Glucose 90 mg/dL (70-100); HEMOLYSIS < 15 (0-50); Potassium 3.6 mmol/L (3.4-5.1); Sodium 133 mmol/L (137-145); Total Protein 6.6 g/dL (6.3-8.2); Uric Acid 4.6 mg/dL (2.5-6.2)
[2024-08-04 19:30] LABS: Creatinine Urine Random 92.81 mg/dL; Protein (Total) Urine Random 11 mg/dL (0-12); Protein Creatinine Ratio Urine 0.11 GRAM/24H
== END 2024-08-04 20:03 | disposition home or self-care (01) ==
LOC: OB 08-05 11:38
PROVIDERS: Referring Provider Obstetrics & Gynecology; Visit Provider Obstetrics & Gynecology
DX: O10.913 Unspecified pre-existing hypertension complicating pregnancy, third trimester (principal); Z3A.34 34 weeks gestation of pregnancy
CPT/HCPCS: 36415; 59025; 59050; 80053; 84550; 85025; G0378; G0379

== ENCOUNTER 2024-08-13 12:38 | Outpatient (CLI) | payer OTHER, SELFPAY | END 2024-08-13 13:55 | disposition home or self-care (01) | LOC: LABOR 13:04 → OB 08-17 08:32 | PROVIDERS: Referring Provider Obstetrics & Gynecology; Visit Provider Obstetrics & Gynecology | DX: O10.913 Unspecified pre-existing hypertension complicating pregnancy, third trimester (principal); Z3A.36 36 weeks gestation of pregnancy | CPT/HCPCS: 59025; 87653; G0378; G0379 ==

== ENCOUNTER → 2024-08-13 14:09 | Outpatient (CLI) | payer OTHER, SELFPAY | PROVIDERS: Visit Provider Obstetrics & Gynecology | DX: Z34.83 Encounter for supervision of other normal pregnancy, third trimester (principal); Z3A.36 36 weeks gestation of pregnancy | CPT/HCPCS: 87653 ==

== ENCOUNTER 2024-08-19 19:31 | Inpatient (IN) | payer OTHER, SELFPAY ==
[2024-08-19 19:40] VITALS: BP 118/64
[2024-08-19 20:37] LABS: Add Manual Diff / Slide Review NO; Basophils Absolute Auto 100 /uL (0-100); Basophils Percent Auto 0.7 % (0-2); Eosinophils Absolute Auto 200 /uL (0-450); Hematocrit 32.8 % (36-46); Hemoglobin 10.9 g/dL (12.0-16.0); Lymphocytes Absolute Auto 3100 /uL (1100-4500); Lymphocytes Percent Auto 17.2 % (25-40); Mean Corpuscular HGB Conc 33.1 % (30-36); Mean Corpuscular Volume 81.4 fL (80-100); Monocytes Absolute Auto 1300 /uL (0-900); Monocytes Percent Auto 7.4 % (3-14); Neutrophils Absolute Auto 13200 /uL (1500-7000); Neutrophils Percent Auto 73.7 % (50-75); Platelet Count 349 X10^3/uL (150-400); Red Blood Cell Count 4.03 X10^6/uL (4.0-5.2); Red Cell Distribution Width 16.8 % (11.6-14.8)
[2024-08-19] MEDS: miSOPROStoL 25 MCG TABLET 50 MCG PO (20:39)
[2024-08-19 20:40] VITALS: BP 118/64; PULSE 98
[2024-08-19] MEDS: LABETALOL 100 MG TABLET PO (20:40)
[2024-08-20] MEDS: miSOPROStoL 25 MCG TABLET 50 MCG PO ×3 (00:42→09:27)
[2024-08-20 08:54] VITALS: BP 133/62; PULSE 89
[2024-08-20] MEDS: LABETALOL 100 MG TABLET PO ×2 (08:54→21:03)
--- NOTE | 2024-08-20 09:36 | P.HPOB_ITS ---
OB HPI Date/Time Date of admission: 08/19/24 Date Patient Seen: 08/20/24 Time Patient Seen: 09:05 History of Present Condition Chief complaint: Induction MARGUERITE Calculator 2 Estimated Delivery Date Method Current WG Current Estimate 09/09/24 Ultrasound #1 37w 2d Other Estimates 09/03/24 LMP (Certain) 38w 1d 09/09/24 Ultrasound #2 37w 2d 09/09/24 Manual 37w 2d : 4 Para: 0 care: good care, initiated at week # (7), number of visits (13) and pounds weight gain (46) Dating criteria OB: LMP confirmed by 1st trimester US Ultrasounds: normal 1st trimester US and normal mid trimester US Obstetrical complications: none Medical complications OB: cardiovascular (Chronic hypertension) and immunologic (chronic leukocytosis) Narrative: Patient is a 34-year-old 4 para 0 who received 3 doses of misoprostol overnight. complicated by chronic hypertension. Has a history of gestational diabetes which resolved with her 85 lb weight loss, after a gastric sleeve. Patient did not do a 1 hour glucose test. She has been checking her blood sugars. She has chronic leukocytosis. Has had bone marrow biopsy x3 which have been negative. Indications Indication for induction OB: gestational HTN/pre-eclampsia Preadmission Labs Last OB Lab Results: 2 Blood Type O Positive 08/19/24 20:20 Antibody Screen Negative 08/19/24 20:20 Hct 32.8 % (36-46) L 08/19/24 20:20 Hgb 10.9 g/dL (12.0-16.0) L 08/19/24 20:20 Hep Bs Antigen Negative s/c (NEGATIVE) 02/12/24 16:15 Hepatitis C Antibody Negative s/c (NEGATIVE) 02/12/24 16:15 Rubella Antibody 8.6 IU/mL (>15) L 02/12/24 16:15 VZV IgG Antibody 409 index (Immune >165) 02/12/24 16:15 Hemoglobin A1c 5.0 % (4.0-6.0) 02/12/24 16:15 Group B Strep (PCR) Neg for grp b strep 08/13/24 14:20 -: Chlamydia screen: negative, Gonorrhea screen: negative and Urine: negative -: PAP smear: Normal Genetic Screens: Cell-free DNA: Normal (normal male) and Alpha-fetoprotein: Normal External Labs -: Urine: negative Prior (ies) Past Pregnancies Del. Date GA/Weeks Labor Lgth Wt Sex Route Outcome Anesthesia Place Delv Breastfeed Preg Comp Name 01/23/18 4-5 spontaneous 05/25/18 4-5 ectopic 12/19/22 6 Delivery Date: 01/23/18 Last Updated by: Jessica Chowdhury RN passed spontaneously, no complications Delivery Date: 05/25/18 Last Updated by: Jessica Chowdhury RN passed after methotrexate injection Delivery Date: 12/19/22 Last Updated by: Jessica Chowdhury RN missed AB, needed D&C Hx # Term Pregnancies: 0 Hx # Pregnancies: 0 Number of Living Children: 0 Multiple births: 0 Spontaneous abortions: 2 Ectopic pregnancies: 1 Elective abortions: 0 Evaluation Evaluation Baseline heart rate: 135 Variability: Moderate (11-25) monitor accelerations: Present Monitor Decelerations: Absent Contraction Frequency (minutes): 6 Uterine Contraction Intensity: Mild Status: Category l Dilation (cm): 1 Effacement (%): 60 Dilation: 1-2 cm Effacement: 60-70% station: -2 Position of cervix: mid Consistency: medium Tapia score: 6 PFSH Medical History (Updated 06/25/24 @ 10:31 by Hermelinda Jason MD) GERD (gastroesophageal reflux disease) Leukocytosis Painful menstrual periods Ovarian cyst Irregular menstrual cycle Infertility Heavy menstrual period Abnormal Pap smear of cervix (~2017) Kidney stones Anemia Iron deficiency anemia Rectal bleeding Hyperlipidemia Endometrial polyp Herpesviral infection Elevated erythrocyte sedimentation rate Hirsutism Abnormal uterine bleeding Vitamin B 12 deficiency Menorrhagia with regular cycle Fibroids Chronic diarrhea History of PCOS Contusion of right wrist UTI (urinary tract infection) Surgical History (Updated 01/05/24 @ 14:44 by Jessica Chowdhury RN) [place] teeth extracted H/O colposcopy with cervical biopsy Anesthesia Amputation toe (~2020) History of bone marrow biopsy Uterine leiomyoma History of endoscopy H/O colonoscopy Hx of cholecystectomy (~2012) History of tonsillectomy and adenoidectomy Family History (Updated 01/05/24 @ 14:45 by Jessica Chowdhury RN) Father Myocardial infarction Diabetes mellitus Heart disease Mother Diverticulitis Brother ADHD Diabetes mellitus Social History marital status: unmarried,living together number of children: 2 (s/o's children) household members: significant other and children lives independently: Yes caregiver/support person: Yes housing: house (mobile home) pets and animals: Yes (2 dogs, 2 cats) education level: vocational occupational status: employed (lunch lady) current occupational exposures/hazards: No special nasir needs: No travel history: recent (domestic only) seatbelt use: always water heater temp set < 120 deg: Yes working smoke detector in home: Yes fire extinguisher in home: Yes carbon monox detector in home: Yes firearms in home: No do you feel safe at home: Yes Smoking Status: Never smoker second hand exposure: No alcohol intake: former (rarely when not ) substance use type: does not use during the past year weight has: decreased > 10 lbs (gastric sleeve 07/2023) well-balanced diet: rarely or never daily servings fruits/ve-1 (1-2/day (limited by gastric sleeve) caffeine: Yes (soft drink some days) Type(s) of exercise: walking frequency: daily duration: 15-30 minutes/day Meds Home Medications and Allergies Home Medications Medication Instructions Recorded Confirmed Type pregabalin 100 mg capsule (Lyrica) 200 mg PO TID 02/06/22 08/19/24 History prenat.vits,kelley,sgc-vyey-sthhs 1 tab PO DAILY 12/04/22 08/19/24 History blood sugar diagnostic (Blood #100 ea 05/06/24 08/13/24 Rx Glucose Test strips) blood-glucose meter (Blood Glucose #1 ea 05/06/24 08/13/24 Rx Monitoring kit) lancets #100 ea 05/06/24 08/13/24 Rx labetalol 100 mg tablet 200 mg PO BID 08/19/24 08/19/24 History Allergies Allergy/AdvReac Type Severity Reaction Status Date / Time cephalexin [From Keflex] Allergy Intermediate Rash Verified 08/19/24 21:35 linezolid Allergy Intermediate Rash Verified 08/19/24 21:35 metronidazole [From Flagyl] AdvReac Intermediate Vomiting Verified 08/19/24 21:35 OB Exam Narrative Exam Narrative: Generally: Patient is sitting up in bed, no acute distress Lungs: Clear to auscultation bilaterally Cardiovascular: Regular rate and rhythm Fundal height: 42 cm Estimated weight 6-1/2-7 lb Extremities: 1+ edema, 1+ DTRs Objective Labs 08/19/24 20:20 Labs: Laboratory Results - last 24 hr 08/19/24 20:20 WBC 18.0 H RBC 4.03 Hgb 10.9 L Hct 32.8 L MCV 81.4 MCH 27.0 MCHC 33.1 RDW 16.8 H Plt Count 349 Neut % (Auto) 73.7 Lymph % (Auto) 17.[address] [place] % (Auto) 7.4 Eos % (Auto) 1.0 L Baso % (Auto) 0.7 Neut # (Auto) 68569 H Lymph # (Auto) 3100 [place] # (Auto) 1300 H Eos # (Auto) 200 Baso # (Auto) 100 Blood Type O Positive Antibody Screen Negative Assessment and Plan Assessment and Plan Assessment and Plan narrative: Assessment: 34-year-old 4 para 0 at 37 and 1/7 weeks gestation status post 3 doses of misoprostol with an unfavorable cervix Chronic hypertension, blood pressure is well controlled on labetalol 200 mg b.i.d. Group B strep negative Plan: Continue misoprostol and re-evaluate in 4 hours Time-Based Coding :: [TOTAL MINUTES] spent with patient and on the chart (including review of chart, obtaining history, exam, reviewing outside data, placing orders, documenting exam and treatment plan, and counseling patient) on [DATE].
[2024-08-20] MEDS: PREGABALIN 50 MG CAPSULE 200 MG PO ×2 (09:59→15:29)
--- NOTE | 2024-08-20 13:20 | PM.OBPNLAB ---
Date/Time Date Patient Seen: 08/20/24 Time Patient Seen: 12:11 Pain Control Pain control: tolerating well Contractions Contractions on admission: none Monitor mode: External Contraction frequency (min): 4 Contraction duration (min): 1 Contraction pattern: Regular Contraction intensity: Mild Status status: Category l Heart Rate Baseline: 140 Monitor Accelerations: Present Monitor Decelerations: Absent Monitor Variability: Moderate Assessment and Plan Assessment: induction ongoing Plan: continuous present management Comments: Recheck cervix and decide on Pitocin at 145pm.
[2024-08-20] MEDS: LACTATED RINGERS 1,000 ML 125 ML IV (13:45)
[2024-08-20] MEDS: OXYTOCIN PREMIX 30 UNIT/500 ML PLAST..BAG IV (13:47)
[2024-08-20 21:03] VITALS: BP 138/69; PULSE 81
[2024-08-20] MEDS: ONDANSETRON 4 MG/2 ML INJ IV (23:37)
--- NOTE | 2024-08-21 01:18 | P.PCN_ITS ---
[facility]ional Block Pre-procedure Procedure: Continuous Lumbar Epidural for L&D Attending OB provider: Dilia Banerjee PMH/ROS narrative: , IOL for GHTN. ROS otherwise negative. PSH/Anesthesia history narrative: None Exam narrative: Morbidly obese. ASA Class: III Labs: Hct 32.8 % (36-46) L 08/19/24 20:20 Plt Count 349 X10^3/uL (150-400) 08/19/24 20:20 Medications: Current Medications Generic Name Dose Route Start Last Admin Trade Name Freq PRN Reason Stop Dose Admin Calcium Carbonate 1,000 mg 08/19/24 19:56 Calcium Carbonate 500 Mg Tab PO Q2HR PRN Dyspepsia Carboprost Tromethamine 250 mcg 08/19/24 19:54 Carboprost 250 Mcg/Ml Ampul IM Q90M PRN Bleeding Fentanyl 50 mcg 08/19/24 19:56 Fentanyl 100 Mcg/2 Ml Inj IV Q1H PRN Pain, Moderate (4-6) Oxytocin/Lactated Ringer's 30 unit in 500 mls @ 200 mls/hr 08/19/24 19:54 Oxytocin Premix IV CONT PRN Bleeding Protocol Tranexamic Acid 1,000 mg/ 100 mls @ 600 mls/hr 08/19/24 19:54 Sodium Chloride IV NOW PRN Bleeding Oxytocin/Lactated Ringer's 30 unit in 500 mls @ 2 mls/hr 08/19/24 20:00 08/20/24 13:47 Oxytocin Premix IV 2 milliunit/min TITRATE ROSE 2 mls/hr Administration Protocol 2 MILLIUNIT/MIN Labetalol HCl 100 mg 08/19/24 21:00 08/20/24 21:03 Labetalol 100 Mg Tablet PO 100 mg BID ROSE Administration Lidocaine HCl 20 ml 08/19/24 19:54 Lidocaine 1% 20 Ml INJ INTRA-OP PRN Post Delivery Mineral Oil 30 ml 08/19/24 19:54 Mineral Oil 30 Ml Udc TOP PRN PRN Version Misoprostol 800 mcg 08/19/24 19:54 Misoprostol 200 Mcg Tablet HI NOW PRN Bleeding Misoprostol 400 mcg 08/19/24 19:54 Misoprostol 200 Mcg Tablet SL NOW PRN Bleeding Misoprostol 50 mcg 08/19/24 19:56 08/20/24 09:27 Misoprostol 25 Mcg Tablet PO 50 mcg Q4H PRN Administration cervical ripening Naloxone HCl 0.2 mg 08/19/24 19:54 Naloxone 0.4 Mg/Ml Vial IV Q2MIN PRN Opiate Reversal Ondansetron HCl 4 mg 08/19/24 19:56 08/20/24 23:37 Ondansetron 4 Mg/2 Ml Inj IV 4 mg Q4HR PRN Administration Nausea And Vomiting Oxytocin 10 unit 08/19/24 19:54 Oxytocin 10 Unit/Ml Vial IM NOW PRN Bleeding Pregabalin 200 mg 08/20/24 09:30 08/20/24 21:43 Pregabalin 50 Mg Capsule PO Not Given TID [facility] Allergies: Allergies Allergy/AdvReac Type Severity Reaction Status Date / Time cephalexin [From Keflex] Allergy Intermediate Rash Verified 08/19/24 21:35 linezolid Allergy Intermediate Rash Verified 08/19/24 21:35 metronidazole [From Flagyl] AdvReac Intermediate Vomiting Verified 08/19/24 21:35 Procedure Insertion date: 08/21/24 Insertion time: 00:50 Prep/Local: 1% lidocaine (chlorhexadine skin prep, dry x 3 min) Interspace: L4-5 Patient position: sitting Needle: 17 gauge Tuohy Loss of resistance with: saline DEJA at (cm): 8 Catheter placed at SKIN (cm): 16 Catheter in SPACE (cm): 8 Sensory level: T10 Insertion: No CSF, No Blood, No Paresthesia with insertion, No Paresthesia with injection and No Test dose reaction Initial Medications TEST DOSE time: 00:57 BOLUS DOSE time: 01:08 BOLUS DOSE (mL): 5 BOLUS DOSE med: other (pump solution) Infusion Initial rate (mL/hr): 12 Post-procedure Anesthesia date START: 08/21/24 Anesthesia time START: 00:50 Anesthesia date END: 08/21/24 Anesthesia time END: 03:23 Post-procedure Anesthesia Assessment: Yes CV function: HR/BP stable, Yes Resp function: RR/sat/airway adequate, Yes Post-op hydration adequate, Yes Pain control adequate, Yes Nausea & vomiting absent, Yes Temperature > 36 C, Yes Mental status appropriate and Yes Anesthesia complications
[2024-08-21] MEDS: LIDOCAINE 1% 20 ML INJ (03:50)
--- NOTE | 2024-08-21 04:30 | PM.OBPNLAB ---
Date/Time Date Patient Seen: 08/20/24 Time Patient Seen: 17:40 Pain Control Pain control: tolerating well Pelvic Exam Dilation (cm): 2 Effacement (%): 80 station: -1 Amniotic membrane status: Intact Contractions Contractions on admission: none Monitor mode: External Pitocin rate (mU/min): 6 Contraction frequency (min): 3 Contraction duration (min): 1 Contraction pattern: Regular Contraction intensity: Moderate Status status: Category l Heart Rate Baseline: 135 Monitor Accelerations: Present Monitor Decelerations: Absent Monitor Variability: Moderate Assessment and Plan Assessment: induction ongoing Comments: AROM with copius clear amniotic fluid Epidural prn Expectant management to
--- NOTE | 2024-08-21 04:32 | PM.OBPRVD ---
Events: Induced HTN and Labor Induction Labor & Delivery Delivery date: 08/21/24 Delivery Time: 03:23 Cervical ripening method: per misoprostal protocol Induction method: per pitocin protocol Delivery augmentation: rupture of membranes Delivery monitor: external FHT and external uterine Route of delivery: Episiotomy description: None L&D Laceration Description: Perineal - 2nd Degree and Vaginal - 2nd Degree Delivery repair: vicryl and chromic Anesthesia Type: Epidural and Local Complications: None Narrative: Patient complete and pushed for 6 minutes. At 3:23 a.m., a live male infant delivered spontaneously over an intact perineum in the FERNANDEZ presentation. No nuchal cord. The remainder of the body delivered without difficulty and was placed on mom's abdomen. The cord was double clamped and cut after it stopped pulsing. Cord bloods were obtained. Pitocin was given in the IV fluids. The placenta delivered intact with a three-vessel cord at 3:29 a.m.. The fundus was massaged to firm. A second-degree vaginal/perineal laceration was repaired with 2-0 Vicryl and 2-0 chromic in the usual fashion. 10 cc of 1% lidocaine were used on the perineum due to patient discomfort. Epidural analgesia. Apgars 9 at 1 minute and 9 at 5 minutes. weight: 6 lb 15.8 oz. bottle feeding. Mom and infant stable to recovery. [place] Baby 1: Infant gender: Male Presentation: vertex Position: Right Occiput Anterior Placenta delivery description: Spontaneous Cord Vessel Description: 3 Vessels score (1 min): 9 score (5 min): 9 weight: 6 lb 15.8 oz Plan for aftercare: Routine care
[2024-08-21] MEDS: IBUPROFEN 600 MG TABLET PO ×4 (05:44→23:49)
[2024-08-21] MEDS: DERMOPLAST SPRAY 20% 60 ML 1 SPRAY TOP (05:45)
[2024-08-21] MEDS: WITCH HAZEL/GLYCERIN PADS 1 EACH TOP (08:04)
[2024-08-21] MEDS: ACETAMINOPHEN 325 MG TABLET 650 MG PO ×3 (08:04→20:43)
[2024-08-21] MEDS: PREGABALIN 50 MG CAPSULE 200 MG PO ×3 (08:07→20:43)
[2024-08-21 11:15] VITALS: BP 102/64; PULSE 79
[2024-08-21 12:04] VITALS: TEMP 36.4
[2024-08-21 14:05] VITALS: TEMP 36.6
[2024-08-21 20:43] VITALS: BP 111/71; PULSE 84
[2024-08-22] MEDS: ACETAMINOPHEN 325 MG TABLET 650 MG PO (03:18)
[2024-08-22 05:32] LABS: Hematocrit 26.2 % (36-46); Hemoglobin 8.6 g/dL (12.0-16.0)
[2024-08-22] MEDS: PREGABALIN 50 MG CAPSULE 200 MG PO (07:51)
[2024-08-22] MEDS: IBUPROFEN 600 MG TABLET PO (07:51)
[2024-08-22 09:16] VITALS: BP 111/74; PULSE 75
--- NOTE | 2024-08-22 17:21 | P.DS_ITS ---
Discharge Providers Provider Date of admission: 08/19/24 19:31 Discharge Date: 08/22/24 Primary care physician: RUFINO De Paz Consults: 08/19/24 19:54 Consult to Anesthesiology Urgent Comment: Consulting Provider: Anesthesiologist Reason for consultation: Epidural Has provider been notified: No 08/22/24 04:34 Consult to [employer] Routine Comment: Discharge provider: Dilia Banerjee MD Summary Hospital Course Date Patient Seen: 08/22/24 Time Patient Seen: 09:50 Diagnoses: 37-2/7 weeks gestation Chronic hypertension Status post gastric sleeve Cervical ripening with misoprostol Induction of labor with Pitocin Artificial rupture of membranes Spontaneous vaginal delivery Second-degree vaginal/perineal laceration Hospital Course: Since it means patient is a 34-year-old 4 para 1031 who presented at 37 weeks' gestation for cervical ripening with misoprostol. She received 4 doses of misoprostol. She was then started on Pitocin. She had an artificial rupture of membranes in the afternoon of March 13, 2024. She progressed to complete dilation and had a short second stage. After 6 minutes she had a spontaneous vaginal delivery without complication. She had a second-degree vaginal/perineal laceration which was repaired in the usual fashion. Patient's course was unremarkable. She was bottle feeding. Bleeding is tapering. Pain is well controlled with ibuprofen. She was discharged home on day #1. Peripartum Data Infant Delivery Method: Natural Vaginal Laceration Description: Perineal - 2nd Degree and Vaginal - 2nd Degree Episiotomy description: None Procedures: Cervical ripening with misoprostol Pitocin induction of labor Artificial rupture of membranes Epidural analgesia Spontaneous vaginal delivery Repair of second-degree perineal/vaginal laceration complications: none 1: Gender: Male Disposition of : home Status at Discharge Cognitive/behavioral status at discharge: oriented Functional status at discharge: independent ambulation Overall status at discharge: patient is progressing back to baseline Time Spent with Patient Time attestation: Total time spent providing and/or coordinating discharge services: Time spent: Less than 30 minutes Objective Labs 08/22/24 05:11 Labs: Laboratory Results - last 24 hr 08/22/24 05:11 Hgb 8.6 L Hct 26.2 L Exam Narrative Exam Narrative: Generally: Patient walking around the room, no acute distress Lungs: Clear to auscultation bilaterally Cardiovascular: Regular rate and rhythm Fundus: Firm at U -1 Extremities: 1+ edema, negative Homans Discharge Plan Discharge Plan Patient Disposition: Home Provider Discharge Comment: Call with fever, chills, or bleeding vaginally more than a pad in an hour Ibuprofen 600 mg every 6 hours as needed for cramping Tylenol 650 mg every 6 hours as needed Continue 81 mg aspirin until 6 weeks Take blood pressures twice a day and restart labetalol at 100 mg twice a day if in the 140s over 90s Discharge orders & Medications Prescriptions: Continued pregabalin [Lyrica] 100 mg capsule 200 mg PO TID prenat.vits,kelley,[id number] Tablet 1 tab PO DAILY labetalol 100 mg tablet 200 mg PO BID No Action (DME) Blood Glucose Test Strip See Rx Instructions .ROUTE .MEDSUPPLY Qty: 100 2RF Rx Instructions: Please check am fasting BS, and 2 hours after breakfast/lunch/dinner (DME) blood-glucose meter [Blood Glucose Monitoring] Kit See Rx Instructions .ROUTE .MEDSUPPLY Qty: 1 0RF Rx Instructions: please chk AM fasting blood sugar, and 2 hour after brkfst, lunch and dinner (DME) lancets Misc See Rx Instructions .ROUTE .MEDSUPPLY Qty: 100 3RF Rx Instructions: please chk AM fasting blood sugar, and 2 hour after brkfst, lunch and dinner Follow up/Referrals: Dilia Banerjee MD [Physician] - (My office will call patient tomorrow to schedule 6 week exam) Diet/Activity/Treatments Diet: Regular Activity: Nothing in the vagina for 6 weeks Skin/Wound/Dressing Care Report to your healthcare provider any signs of infection, such as:: chills, fever, increased pain and unusual drainage Visit Report/Discharge Packet Instructions: DI for Labor and Delivery, Vaginal Stand Alone Forms: Discharge: Care, Patient Portal/API, Stroke Signs & Symptoms Discharge Data Primary Care Provider: Theresa Weiss
== END 2024-08-22 12:20 | disposition home or self-care (01) | DRG 807 ==
PROVIDERS: Admitting Provider Obstetrics & Gynecology; Referring Provider Obstetrics & Gynecology; Visit Provider Obstetrics & Gynecology
DX: O10.92 Unspecified pre-existing hypertension complicating childbirth (principal); Z37.0 Single live birth; O70.1 Second degree perineal laceration during delivery; Z3A.37 37 weeks gestation of pregnancy
CPT/HCPCS: 36415; 59050; 59200; 59400; 85014; 85018; 85025; 86850; 86900; 86901; G0379; J2405; J2590

== ENCOUNTER → 2025-02-02 09:33 | Outpatient (CLI) | payer OTHER, SELFPAY ==
[2025-02-02 10:57] LABS: HCG Quantitative /Beta subunit 263.49 mIU/mL
== END ==
LOC: LAB 09:34
PROVIDERS: Referring Provider Obstetrics & Gynecology; Visit Provider Obstetrics & Gynecology
DX: N91.2 Amenorrhea, unspecified (principal); N96 Recurrent pregnancy loss
CPT/HCPCS: 36415; 84702

== ENCOUNTER → 2025-02-04 08:57 | Outpatient (CLI) | payer OTHER, SELFPAY ==
[2025-02-04 10:28] LABS: HCG Quantitative /Beta subunit 833.78 mIU/mL
== END ==
PROVIDERS: Referring Provider Obstetrics & Gynecology; Visit Provider Obstetrics & Gynecology
DX: N91.2 Amenorrhea, unspecified (principal); N96 Recurrent pregnancy loss
CPT/HCPCS: 36415; 84702

== ENCOUNTER → 2025-03-04 15:08 | Outpatient (CLI) | payer OTHER, SELFPAY ==
[2025-03-04 16:53] LABS: Urine N gonorrhoeae NOT DETECTED
[2025-03-04 17:00] LABS: Urine Chlamydia NOT DETECTED
== END ==
PROVIDERS: PCP Family Medicine; Visit Provider Obstetrics & Gynecology
DX: O09.899 Supervision of other high risk pregnancies, unspecified trimester (principal); E28.2 Polycystic ovarian syndrome; Z98.84 Bariatric surgery status; I10 Essential (primary) hypertension
CPT/HCPCS: 87491; 87591

== ENCOUNTER → 2025-03-15 10:00 | Outpatient (CLI) | payer OTHER, SELFPAY ==
[2025-03-15 10:36] LABS: Hematocrit 34.0 % (36-46); Hemoglobin 11.5 g/dL (12.0-16.0); Mean Corpuscular HGB Conc 33.8 % (30-36); Mean Corpuscular Hemoglobin 27.2 PG (26-34); Mean Corpuscular Volume 80.4 fL (80-100); Platelet Count 322 X10^3/uL (150-400)
[2025-03-15 10:42] LABS: Uric Acid 4.2 mg/dL (2.5-6.2)
[2025-03-15 10:43] LABS: Alanine Aminotransferase 18 IU/L (<35); Albumin 4.0 g/dL (3.5-5.0); Albumin Globulin Ratio 1.3 (1.0-2.8); Alkaline Phosphatase 78 U/L (38-126); Blood Urea Nitrogen 4 mg/dL (7-17); Calcium 8.9 mg/dL (8.4-10.2); Carbon Dioxide 18 mmol/L (22-32); Chloride 107 mmol/L (98-107); Estimated Glomerular Filt Rate > 60 mL/min (>60); Globulin 3.1 g/dL (1.7-4.1); Glucose 143 mg/dL (70-99); HEMOLYSIS < 15 (0-50); Potassium 3.4 mmol/L (3.4-5.1); Sodium 137 mmol/L (137-145); Total Protein 7.1 g/dL (6.3-8.2)
[2025-03-15 10:44] LABS: HEMOLYSIS 29 (0-50); Iron 46 ug/dL (37-170)
[2025-03-15 10:57] LABS: Percent Iron Saturation 14 % (15-50); Total Iron Binding Capacity 340 ug/dL (265-497); Transferrin 294 mg/dL (206-381)
[2025-03-15 11:26] LABS: Vitamin D 25 Hydroxy (D3) 26.0 ng/mL (30.0-100.0)
[2025-03-15 11:30] LABS: Eosinophils Percent Manual 2.0 % (2-4); Lymphocytes Percent Manual 18.0 % (25-45); Monocytes Percent Manual 6.0 % (2-11); Neutrophils Absolute Manual 11396 /uL (3000-5900); Segmented Neutrophils Percent 74.0 % (38-70); Total Cells Counted 100
[2025-03-15 11:31] LABS: RBC Morphology Normal Morphology
[2025-03-15 11:51] LABS: Folate > 20.0 ng/mL (2.76-20.0); Vitamin B12 277 pg/mL (239-931)
[2025-03-15 15:11] LABS: Hepatitis B Surface Antigen NEGATIVE s/c (NEGATIVE)
[2025-03-15 15:26] LABS: HIV 1 & 2 Ab/Ag 4th Gen Combo NEGATIVE (NEGATIVE); Hep C Virus Ab w/Reflex Quant NEGATIVE s/c (NEGATIVE)
== END ==
PROVIDERS: PCP Family Medicine; Referring Provider Family Medicine; Visit Provider Obstetrics & Gynecology
DX: O99.841 Bariatric surgery status complicating pregnancy, first trimester (principal); O09.899 Supervision of other high risk pregnancies, unspecified trimester; E11.9 Type 2 diabetes mellitus without complications; I10 Essential (primary) hypertension; E28.2 Polycystic ovarian syndrome
CPT/HCPCS: 36415; 80053; 82306; 82607; 82746; 83540; 83550; 84550; 85025; 86592; 86787; 86803; 86850; 86900; 86901; 87340; 87389

== ENCOUNTER → 2025-03-17 10:25 | Outpatient (CLI) | payer OTHER, SELFPAY ==
[2025-03-17 12:01] LABS: Creatinine 24 Hour Urine 1757 mg/day (800-1800); Total Volume Urine 1850 mL
[2025-03-17 12:02] LABS: Protein (Total) Urine Random 16 mg/dL (0-12); Protein Creatinine Ratio Urine 0.17 GRAM/24H
== END ==
PROVIDERS: Obstetrics & Gynecology; PCP Family Medicine; Referring Provider Family Medicine; Visit Provider Emergency Medicine
DX: O09.899 Supervision of other high risk pregnancies, unspecified trimester (principal); I10 Essential (primary) hypertension; E28.2 Polycystic ovarian syndrome; Z98.84 Bariatric surgery status
CPT/HCPCS: 82570; 84156; 87086

== ENCOUNTER → 2025-04-06 10:50 | Outpatient (CLI) | payer OTHER, SELFPAY ==
[2025-04-06 12:27] LABS: Hemoglobin A1C% w Est Avg Glu 5.3 % (4.0-6.0)
[2025-04-06 12:37] LABS: Natera Collection Specimen Collected
[2025-04-06 13:18] LABS: Ferritin 59 ng/mL (6-137)
== END ==
PROVIDERS: PCP Family Medicine; Referring Provider Obstetrics & Gynecology; Visit Provider Obstetrics & Gynecology
DX: O99.841 Bariatric surgery status complicating pregnancy, first trimester (principal); Z13.0 Encounter for screening for diseases of the blood and blood-forming organs and certain disorders involving the immune mechanism; Z3A.11 11 weeks gestation of pregnancy
CPT/HCPCS: 36415; 82728; 83036

== ENCOUNTER → 2025-06-10 08:32 | Outpatient (CLI) | payer OTHER, SELFPAY ==
[2025-06-10 10:32] LABS: Calcium 9.4 mg/dL (8.4-10.2)
[2025-06-10 10:49] LABS: Vitamin D 25 Hydroxy (D3) 22.5 ng/mL (30.0-100.0)
[2025-06-10 11:04] LABS: Ferritin 24 ng/mL (6-137)
[2025-06-10 11:35] LABS: Folate 6.8 ng/mL (2.76-20.0); Vitamin B12 211 pg/mL (239-931)
[2025-06-13 13:36] LABS: Gest Age on Col Date 21.1 weeks (.); OSBR Risk 1IN 10000 (.)
== END ==
PROVIDERS: PCP Family Medicine; Referring Provider Obstetrics & Gynecology; Visit Provider Obstetrics & Gynecology
DX: O99.841 Bariatric surgery status complicating pregnancy, first trimester (principal); O09.899 Supervision of other high risk pregnancies, unspecified trimester
CPT/HCPCS: 36415; 82105; 82306; 82310; 82607; 82728; 82746

== ENCOUNTER → 2025-06-17 15:39 | Outpatient (CLI) | payer OTHER, SELFPAY ==
--- NOTE | 2025-06-17 16:34 | DIAB.GDA ---
Initial Gestational Diabetes Assessment Name: Radha Simpson Date: 06/17/25 Time: 4-515p Dx: Gestational Diabetes Provider: Lashaun MARGUERITE: 10/20/25 changed by MFM to 10/05/24 Weeks: 24 Radha presents for initial GDM visit. PMH of T2DM, which subsided after gastric sleeve weight loss surgery in 2023. Has a son 10 months old. This she is having a girl! Has 2 older age 10 and 11 stepsons. Sees MFM. Rx'd Metformin for elevated FBG. Did not take due to having h/o severe diarrhea and stomach with Metformin previously. Also, experiences dumping syndrome with high intake of certain foods, especially sugar. Prefers insulin therapy, which this RD thinks is a good plan given FBG consistently above 100mg/dl. Additionally, she is familiar with injections with PMH of daily GLP1 Victoza injections previously. Interested in CGM sample today. Familiar with label reading. May need review of carb content and recs. Diet Recall: 7-8a: banana and toast 12/1p: sandwich with ham and cheese + handful of grapes or chips 3p: nothing or cheese, meat with crackers 6p: meat and veggies OR meat, veggies and 1/4c rice water 80oz+ 12oz soda Sometimes may eat protein as a snack at 2-3am Anthropometrics: Ht: 67 Wt: 314.5# 05/2025 Prepregnancy wt: 294# Physical Activity: Not discussed today Self-Monitoring Blood Glucose: FBG consistently elevated a few elevated pc readings. Checking FBG and 2 hour pc. Missing readings. Lost meter, but plans to find it this weekend. Date Pre Post Pre Post Pre Post HS 06/10 97 89 119 06/11 127 144 99 145 06/12 118 110 06/13 126 109 114 06/14 124 119 06/15 118 Diabetes Medications: None Pertinent Labs: HgA1c: 5.3% cannot tolerate OGTT Nutrition Rx: Carbohydrates: Meal: 45-g lunch and dinner; 30g breakfast Snack: 15-30g Nutrition Diagnosis: Self monitoring deficit r/t missing meter and missing BG checks aeb BG log and pt report Undesirable food choice r/t regular soda intake aeb pt report Nutrition and food related knowledge deficit r/t newly dx GDM aeb elevated BG Intervention: This participant was very receptive. Provided appropriate educational handouts. Discussed the following topics: GDM pathophysiology and impact of hyperglycemia on mom and baby Risk for T2DM for mom and baby in the future Ways to reduce risk T2DM Plate Method, meal timing, carb counting, pairing macronutrients and spreading out CHO for better BG management Blood glucose goals (FBG: <95 and 1 hour <140 mg/dL or 2 hour <120mg/dl); importance of checking 4x per day (FBG and pc) CGM education, placement, and precautions Impact of macronutrients on blood glucose Recommended servings for carbohydrates at meals and snacks Brainstormed appropriate meal/snack ideas based on her food preferences Medication management Goals: Add protein to breakfast Wear CGM sample Incorporate CHO with dinner in moderation Follow-up: LUPE LATHAM follow-up in one week virtually. This RD would rec insulin therapy given elevated BG and pt intolerance for Metformin. Will message OB with assessment findings. Claudia Duran RDN, CDCES Certified Diabetes Care and What Job Titles Mean T: [phone] F: [phone] [email or web address] Thank you for this referral
== END ==
LOC: DIET 15:39
PROVIDERS: PCP Family Medicine; Referring Provider Obstetrics & Gynecology
DX: O24.419 Gestational diabetes mellitus in pregnancy, unspecified control (principal); Z71.3 Dietary counseling and surveillance; Z98.84 Bariatric surgery status; Z3A.24 24 weeks gestation of pregnancy
CPT/HCPCS: 97802

== ENCOUNTER → 2025-06-22 10:26 | Outpatient (CLI) | payer OTHER, SELFPAY ==
--- NOTE | 2025-06-23 11:49 | DIAB.GDFU ---
Follow-up Gestational Diabetes Assessment Name: Radha Simpson Date: 06/23/25 Time: 10-1030a Dx: Gestational Diabetes Provider: Lashaun MARGUERITE: 10/20/25 reports changed by M to 10/05/24 Weeks: 24-25 per report Radha presents for GDM visit virtually using Portal. PMH of T2DM, which subsided after gastric sleeve weight loss surgery in 2023. Has a son 10 months old. This she is having a girl! Has 2 older age 10 and 11 stepsons. OB has rx'd NPH to help reduce FBG. Pt has not yet reached out to [facility] but plans to today to update on insulin plan, since she is not able to tolerate Metformin based on hx. Has rx for NPH but not for CGM or insulin pen needles. Avoiding CHO at breakfast renders more in range number at this time without insulin. Tried adding half bagel or eng muffin and BG elevated. Just egg bites this morning and BG in goal. Anthropometrics: Ht: 67 Wt: 314.5# 05/2025 Prepregnancy wt: 294# Physical Activity: Started walking more. 30 mins most days pre or post dinner. Self-Monitoring Blood Glucose: FBG consistently elevated a few elevated pc readings. Recent BG gleaned from CGm at highest pt after meal. BG consistently elevated. Plans to start insulin. Today: based on CGM results Date Pre Post Pre Post Pre Post 06/16 06/17 170 161 06/18 109 202 179 130 06/19 108 152 193 06/20 106 187 143 180 06/21 102 174 176 163 06/22 104 146 Last Visit: Date Pre Post Pre Post Pre Post HS 06/10 97 89 119 06/11 127 144 99 145 06/12 118 110 06/13 126 109 114 06/14 124 119 06/15 118 Diabetes Medications: None Pertinent Labs: HgA1c: 5.3% cannot tolerate OGTT Nutrition Rx: Carbohydrates: Meal: 45-g lunch and dinner; 30g breakfast Snack: 15-30g Nutrition Diagnosis: Self monitoring deficit r/t missing meter and missing BG checks aeb BG log and pt report- improved Undesirable food choice r/t regular soda intake aeb pt report - improved Nutrition and food related knowledge deficit r/t newly dx GDM aeb elevated BG- in progress Intervention: This participant was very receptive. Provided appropriate educational handouts. Discussed the following topics: BG trend review and goals Insulin injection technique review and supplies needed Brainstormed appropriate meal/snack ideas based on her food preferences Medication management Goals: Add protein to breakfast-- met Wear CGM sample-- met Incorporate CHO with dinner in moderation-- met Avoid CHO at breakfast for now- new Start NPH- new Keep walking- new Follow-up: LUPE LATHAM follow-up in one week for CGM remote check and will call prn, then RD 1:1 in two weeks. Claudia Duran RDN, [facility] Certified Diabetes Care and Crisis Mental Health Therapist T: [phone] F: [phone] [email or web address] Thank you for this referral
== END ==
LOC: DIET 10:27
PROVIDERS: PCP Family Medicine; Referring Provider Obstetrics & Gynecology
DX: O24.419 Gestational diabetes mellitus in pregnancy, unspecified control (principal); Z3A.24 24 weeks gestation of pregnancy; Z71.3 Dietary counseling and surveillance; Z98.84 Bariatric surgery status
CPT/HCPCS: 97803

== ENCOUNTER → 2025-07-08 09:02 | Outpatient (CLI) | payer OTHER, SELFPAY ==
--- NOTE | 2025-07-08 09:05 | DIAB.GDFU ---
Follow-up Gestational Diabetes Assessment Name: Radha Simpson Date: 07/08/25 Time: 90a Dx: Gestational Diabetes Provider: Lashaun MARGUERITE: 10/05/24 Weeks: 27 Radha presents for GDM visit virtually using Portal. PMH of T2DM, which subsided after gastric sleeve weight loss surgery in 2023. Has a son 10 months old. This she is having a girl! Has 2 older age 10 and 11 stepsons. up to 15u NPH HS, but seems to need NPH BID and likely addition of meal time insulin. Has made changes to diet, reduced CHO, eating below SMOKE JUMPER for but still having elevations. Getting iron infusion and B12 injections. Plans to transfer of care to around 36 weeks Grieving today due to the passing of her grandfather, they were close, he lived in [place]. Diet Recall: 8A: 2 egg bites, 2 small sausage patties, 1/2 banana 12-1p: meat and cheese half sandwich with more protein on side, fruit (1/2 banana) 3p: nothing or meat/cheese 6p: chicken sam with pasta x 1/4c, broccoli water 6oz soda between lunch and dinner Estimated 90-100g CHO per day (under 175g SMOKE JUMPER for ) Anthropometrics: Ht: 67 Wt: 315# 06/2025 314.5# 05/2025 Prepregnancy wt: 294# Physical Activity: Walking 3-4 days per week due to weather, 20-30 mins. Considering yoga. Self-Monitoring Blood Glucose: FBG improved but still excessively elevated. Recent BG gleaned from CGm at highest pt after meal with a goal of (<140mg/dl for CGM peaks) BG consistently elevated. Likely needs additional insulin coverage Today: based on CGM results Date Pre Post Pre Post Pre Post HS 07/02 100 154 189 179 07/03 93 206 177 184 07/04 83 161 148 178 07/05 105 148 197 07/06 100 190 234 157 07/07 87 154 176 177 07/08 104 134 Last Visit: Date Pre Post Pre Post Pre Post HS 06/16 06/17 170 161 06/18 109 202 179 130 06/19 108 152 193 06/20 106 187 143 180 06/21 102 174 176 163 06/22 104 146 Diabetes Medications: 15u NPH HS Pertinent Labs: HgA1c: 5.3% cannot tolerate OGTT Nutrition Rx: Carbohydrates: Meal: 45-g lunch and dinner; 30g breakfast Snack: 15-30g Nutrition Diagnosis: Nutrition and food related knowledge deficit r/t newly dx GDM aeb elevated BG- improved Inadequate CHO intake r/t reduced carb intake to help manage hyperglycemia aeb pt report and diet recall of <175g CHO per day- new Intervention: This participant was very receptive. Provided appropriate educational handouts. 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 will message OB for insulin plan, per provider notes OB agrees with likely need for additional insulin coverage. Claudia Duran RDN, NOA Certified Diabetes Care and Bulk Plant Operator T: [phone] F: [phone] [email or web address] Thank you for this referral
== END ==
LOC: DIET 09:02
PROVIDERS: PCP Family Medicine; Referring Provider Obstetrics & Gynecology
DX: O24.414 Gestational diabetes mellitus in pregnancy, insulin controlled (principal); O99.843 Bariatric surgery status complicating pregnancy, third trimester; Z71.3 Dietary counseling and surveillance; Z3A.27 27 weeks gestation of pregnancy
CPT/HCPCS: 97803

== ENCOUNTER → 2025-07-19 11:31 | Outpatient (CLI) | payer OTHER, SELFPAY ==
--- NOTE | 2025-07-19 11:33 | DIAB.GDFU ---
Follow-up Gestational Diabetes Assessment Name: Radha Simpson Date: 07/19/25 Time: 1130-12 Dx: Gestational Diabetes Provider: Lashaun MARGUERITE: 10/05/24 Weeks: 28-29 Radha presents for GDM visit virtually using Portal. PMH of T2DM, which subsided after gastric sleeve weight loss surgery in 2023. It's a girl! Plans to transfer of care to around 36 weeks Started NPH BID and meal time insulin. BG much improved, but still having elevations. Saw MFM last week, and reports growth US with 35 or 45%ile abdominal measure Endorses mostly acceptable differences between cgm and finger sticks. Did endorse a low with symptoms overnight. May need to reduce evening NPH. skipping chips at lunch now Diet Recall: 8A: 2 egg bites, 2 small sausage patties, 1/2 eng muffin 12-1p: meat and cheese half ww sandwich with cottage cheese 3-4p: meat/cheese OR cottage cheese with meat stick 6p: burgers on ww buns with fruit sometimes midnight to 2a meat/crackers/cheese water 80oz + sf snapple 12oz Trying to avoid soda Anthropometrics: Ht: 67 Wt: 315# 06/2025 314.5# 05/2025 Prepregnancy wt: 294# Physical Activity: Walking weather dependent, 20-30 mins. Considering yoga still. Self-Monitoring Blood Glucose: FBG improved with less >100mg/dl. After meal numbers still elevated. Encouraged increase in prandial insulin based on rx. Today: based on CGM results Date Pre Post Pre Post Pre Post HS 07/13 98 155 173 219 07/14 88 125 209 170 07/15 109 154 198 158 07/16 197 136 153 07/17 86 149 154 174 07/18 84 205 166 163 07/19 91 182 175 Last Visit: Date Pre Post Pre Post Pre Post HS 07/02 100 154 189 179 07/03 93 206 177 184 07/04 83 161 148 178 07/05 105 148 197 07/06 100 190 234 157 07/07 87 154 176 177 07/08 104 134 Diabetes Medications: 15u NPH HS 15u NPH Am Aspart 10-12u--- rx 15u Pertinent Labs: HgA1c: 5.3% cannot tolerate OGTT Nutrition Rx: Carbohydrates: Meal: 45-g lunch and dinner; 30g breakfast Snack: 15-30g Nutrition Diagnosis: Nutrition and food related knowledge deficit r/t newly dx GDM aeb elevated BG- improved Inadequate CHO intake r/t reduced carb intake to help manage hyperglycemia aeb pt report and diet recall of <175g CHO per day- improved/in progress Intervention: This participant was very receptive. Provided appropriate educational handouts. 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 Claudia Duran RDN, NOA Certified Diabetes Care and Certified Orthotist T: [phone] F: [phone] [email or web address] Thank you for this referral
== END ==
LOC: DIET 11:32
PROVIDERS: PCP Family Medicine; Referring Provider Obstetrics & Gynecology
DX: O24.414 Gestational diabetes mellitus in pregnancy, insulin controlled (principal); Z98.84 Bariatric surgery status; Z3A.29 29 weeks gestation of pregnancy; Z71.3 Dietary counseling and surveillance
CPT/HCPCS: 97803

== ENCOUNTER 2025-08-08 13:35 | Observation (INO) | payer OTHER, SELFPAY ==
[2025-08-08] MEDS: ACETAMINOPHEN 325 MG TABLET 975 MG PO (14:17)
--- NOTE | 2025-08-08 14:50 | P.TNLD_ITS ---
Visit Information Visit Information Date of evaluation: 08/08/25 On-call OB Provider: Cora Delcid Comments/Additional reasons for admission: Patient presents for unrelenting headache for the last 2 days. She has been monitoring her blood pressure at home, which has been normal. She has tried tylenol, with little effect. She otherwise denies ctx, LOF, VB, or decreased FM. Vital Signs Vital Signs: BP 124/60 P 118, O2 sat 96% PFSH Medical History (Updated 08/08/25 @ 18:38 by Cora Delcid DO) Gestational diabetes GERD (gastroesophageal reflux disease) Leukocytosis Painful menstrual periods Ovarian cyst Irregular menstrual cycle Infertility Heavy menstrual period Abnormal Pap smear of cervix (~2017) Kidney stones Anemia Iron deficiency anemia Rectal bleeding Hyperlipidemia Endometrial polyp Herpesviral infection Elevated erythrocyte sedimentation rate Hirsutism Abnormal uterine bleeding Vitamin B 12 deficiency Menorrhagia with regular cycle Fibroids Chronic diarrhea Contusion of right wrist UTI (urinary tract infection) Surgical History (Updated 03/01/25 @ 10:08 by Jessica Chowdhury RN) History of bariatric surgery [place] teeth extracted H/O colposcopy with cervical biopsy Anesthesia Amputation toe (~2020) History of bone marrow biopsy Uterine leiomyoma History of endoscopy H/O colonoscopy Hx of cholecystectomy (~2012) History of tonsillectomy and adenoidectomy Family History (Updated 03/01/25 @ 10:10 by Jessica Chowdhury RN) Father Myocardial infarction Diabetes mellitus Heart disease Mother Diverticulitis Brother ADHD Diabetes mellitus Family/Other Crohn's disease Social History marital status: number of children: 3 (includes two stepchildren) household members: spouse, significant other and children lives independently: Yes caregiver/support person: Yes housing: house pets and animals: Yes (2 dogs, 2 cats) education level: vocational occupational status: previously employed current occupational exposures/hazards: No special nasir needs: No travel history: recent (domestic only) seatbelt use: always water heater temp set < 120 deg: Yes working smoke detector in home: Yes fire extinguisher in home: Yes carbon monox detector in home: Yes firearms in home: No do you feel safe at home: Yes second hand exposure: No alcohol intake: former (rarely when not ) substance use type: does not use during the past year weight has: other (gastric sleeve 07/2023; first child 6 months old) well-balanced diet: rarely or never daily servings fruits/ve-1 (1-2/day (limited by gastric sleeve)) caffeine: Yes (1 soft drink/day) Type(s) of exercise: walking frequency: daily duration: 15-30 minutes/day Exam Const General: healthy appearing and No acute distress HENMT Head: normal to inspection and normocephalic Ears: hearing grossly normal bilaterally Eyes General: appearance normal, both eyes and all related structures Resp Effort & Inspection: normal respiratory effort and able to speak in complete sentences GI Inspection: normal to inspection, large pannus and obesity Skin General: no rashes or lesions noted Evaluation Evaluation Baseline heart rate: 150 Comments: unable to obtain FHR tracing due to obesity Diagnosis, Plan/Disposition Final Diagnosis (1) Headache in , antepartum: Status: Acute Plan/Disposition Plan: Patient was observed and given tylenol, benadryl, 1g magnesium IV, reglan, and oxycodone with eventual improvement in her headache to 2/10. Her blood pressures remained normal throughout her evaluation, thus no labs were sent. -patient given pre-e precautions and reasons to return to care -advised to f/u in clinic as scheduled OB Disposition: home
[2025-08-08] MEDS: diphenhydrAMINE 50 MG/ML VIAL IM (14:59)
[2025-08-08] MEDS: MAGNESIUM SULFATE 1 GM/25 ML PIGGYBACK IV (16:12)
[2025-08-08] MEDS: LACTATED RINGERS 500 ML IV (16:43)
[2025-08-08] MEDS: METOCLOPRAMIDE 10 MG/2 ML INJ IV (17:06)
== END 2025-08-08 18:40 | disposition home or self-care (01) ==
PROVIDERS: Admitting Provider Obstetrics & Gynecology; PCP Family Medicine; Referring Provider Obstetrics & Gynecology; Visit Provider Obstetrics & Gynecology
DX: O26.893 Other specified pregnancy related conditions, third trimester (principal); R51.9 Headache, unspecified; Z3A.31 31 weeks gestation of pregnancy
CPT/HCPCS: 59050; 96360; 96372; G0378; G0379; J1200; J2765; J3475

== ENCOUNTER 2025-08-16 11:47 | Outpatient (CLI) | payer OTHER, SELFPAY | END 2025-08-16 12:55 | disposition home or self-care (01) | LOC: LABOR 12:20 → OB 14:24 | PROVIDERS: PCP Family Medicine; Referring Provider Obstetrics & Gynecology; Visit Provider Obstetrics & Gynecology | DX: O24.912 Unspecified diabetes mellitus in pregnancy, second trimester (principal); Z3A.22 22 weeks gestation of pregnancy; Z79.4 Long term (current) use of insulin | CPT/HCPCS: 59025; G0378; G0379 ==

== ENCOUNTER 2025-08-23 10:50 | Outpatient (CLI) | payer OTHER, SELFPAY ==
--- OUTSIDE RECORDS SUMMARY | 2025-05-18 13:30 | XMS_ITS | Encounter Summary ---
Author Organization [facility] [place] [address] [place] [address] Care Team Providers Care Shirt Maker Name Role Phone Kristine Wasserman RN Unavailable Unavaila Dara Calvo RN Unavailable [phone] Poornima Bach RN Unavailable [phone] Chandu Claudio LPN Unavailable Unavailable Gretel Viera CROP [employer] F[employer]ER Unavailable [phone] Laura De La Rosa [facility] Primary Care Provi rashid Reason for Visit * Reason Comments Follow-Up consult Encounter Details Date Type Department Care Team (Late st Contact Info) Description 05/18/2025 2:30 PM PDT Telemedicine [facility] [address] [place] [phone] Chloe Keys MD [facility] [facility] [id number] [place] [address] Dx: Obesity in (HCC) (Primary Dx) Discharge Disposition: 01 HOME/SELF CARE Social History Tobacco Use Types Packs/Day Years Used Date Smoking Tobacco: Never Alcohol Use Standard Drinks/Week Comments Yes 0 (1 standard drink = 0.6 oz pur e alcohol) 1-2 times a year Estimated Date of Delivery Comme nts Yes 10/05/2025 Based on last me nstrual period of 12/29/2024 Sex and Gender Information Value Date Recorded Sex Assigned at Not on file Legal Sex Female 3:50 PM PDT Gender Identity Not on file Sexual Orientation Not on file documented as of this encounter Last Filed Vital Signs Vital Sign Reading Time Taken Comments Blood Pressure 124/72 05/18/2025 2:09 PM PDT Pulse 74 05/18/2025 2:09 PM PDT Temperature - - Respiratory Rate - - Oxygen Saturation 99% 05/18/2025 2:09 PM PDT Inhaled Oxygen Concentration - - Weight 141.5 kg (312 lb) 05/18/2025 2:09 PM PDT Height 170.2 cm (5' 7.01) 05/18/2025 2:09 PM PD T Body Mass Index 48.85 05/18/2025 2:09 PM PDT documented in this encounter Progress Notes * Chloe Keys MD - 05/18/2025 2:30 PM PDT Division of Maternal- Medicine [facility] DATE OF SERVICE: 05/18/2025 Referring Physician Kerry Wilks Distant Site Telemedicine Encounter I conducted this encounter via secure, live, [id number] video conference with the patient. I reviewed the risks and benefits of telemedicine as pertinent to this visit and the patient agreed to proceed. Provider Location: Off-site location (home, non- location) Patient Location: At [facility] office Present with patient: No one else present CC: Radha Simpson is a 34 year old, , 20w0d, gestational age by LMP, confirmed with 15 week ultrasound who presents in consultation for complex medical issues. Her is complicated by Chronic hypertension on medication Short interpregnancy interval. Obesity in GERD History of Gastric sleeve. 2022 Type II DM - resolved after gastric sleeve. History of Iron deficiency anemia. History of microcytosis. Sleep apnea History of renal stones. History of fibromyalgia / peripheral neuropathy in feet. On pregabalin Depression/ anxiety/ ADHD HISTORY OF PRESENT ILLNESS See prior note by myself on 04/13/25. cfDNA low risk INTERVAL UPDATE Feels ok. BP has been good at home. She regularly checks her BG. She reports increased ADHD and anxiety symptoms. She feels she needs to go back on her ADHD medications. PHYSICAL EXAMINATION Vitals: 05/18/25 1409 BP: 124/72 Pulse: 74 SpO2: 99% Exam is limited to ultrasound of the fetus. ULTRASOUND: [facility] 04/13/25 IMPRESSION ========= 1. Chester with biometry consistent with LMP and discordant with reported MARGUERITE by previous ultrasound. 2. Placenta is posterior. 3. Amniotic fluid volume is normal. 4. Anatomy survey is limited by early gestational age, as noted. 5. Recommend dating by LMP, which appears concordant with today's ultrasound 05/18/25 [facility] 1. Single IUP at 20w 0d by MARGUERITE of 10/05/2025. 2. Biometry is consistent with MARGUERITE. EFW is 329 g (48%) with an AC at 50%. 3. Placenta: posterior, no evidence of previa. 4. 3 vessel cord with a normal insertion to the placenta. 5. Amniotic fluid is normal, MVP is 5.2 cm. 6. The following anatomy was not well seen today: lips, nose, heart,lungs, cord insertion, spine, feet. 7. The remainder of the anatomy was visualized as normal, without structural differences. . 8. The Transabdominal cervical length is normal at 49 mm. ASSESSMENT & PLAN #IUP at 20w0d #Short interval #. Obesity in , BMI 48.9 Radha has been previously counseled regarding optimal weight gain in , maternal risk, and risk for her current BMI. Her TWG has been 9.522 kg (20 lb 15.9 oz) We reviewed she will most likely need to deliver at due to her hospital BMI cut off of 50. Ultrasound for growth every 4 weeks with [facility] consult in [place]. Given her weight gain trajectory, we will plan on her delivering at in [place] with transfer of care visit with [facility] around 36 weeks. #Chronic hypertension on medication She has been previously counseled on risks and management of chronic hypertension in . Stable on labetalol 200 mg BID. She is on ASA for risk reduction. She was delivered at 37 weeks in her previous for worsening BP. Baseline PreE labs are normal. She reports her BP at home is mostly normotensive. She did have an increased BP of 130/ 92 last week during migraine. Recommend twice weekly NST starting at 32 weeks. Timing of delivery is individualized for women with chronic hypertension, but the current national recomendation for uncomplicated patient is 38 to 39 weeks of gestation #Gastric sleeve in 2023 #Sleep Apnea Radha underwent gastric sleeve in 2022. She accomplished weight loss of 120lb. She subsequently gained 40lb in her last and did not return to her pre- weight before becoming again. She is unable to use her CPAP due to discomfort. Her sleep apnea did improve after weight loss. She has been previously counseled regarding risk for in patients with history of gastric bypass Monitoring of iron (ferritin), folate, vitamin B12, vitamin D, and calcium levels every trimester is recommended. Her vitamin D and B12 were low at beginning of her current . Replacement Gandhi and B 12 was recommended. The following are the recommended vitamin levels for a patient with history of bariatric surgery Vitamin B12 optimal is over 400 Vitamin D - optimal is over 35 Ferritin - optimal >50 Potassium - optimal is over 3.5 Prealbumin- optimal is over 20. If prealbumin lower, recommend increased protein intake. Summary of recommendations Laboratory screening for nutrient deficiencies every trimester. This includes monitoring iron (ferritin), folate, vitamin B12, vitamin D, and calcium levels. Encouraged to start Vitamin D replacement 2000 Daily. Recheck Vitamin D level at 24 weeks. Monthly IM b12 injection rather than oral due to malabsorption risk. #History of type II DM. Resolved after gastric surgery A1C 5.2 in current . Her blood sugars were normal during previous . She is unable to tolerate GTT due to mild dumping syndrome.She has been checking her BG at home. Wereviewed normal values for FBG and 2 hour pp. Her home BG values are normal per Radha. She did not bring a log in today. FBF 88-92. Had one fasting at 102 after eating in middle of night at 2 am. 2 hour pp running highest 128. She will most likely need insulin for glucose management at some point in the current . IfBG start trending higher, consider starting CGM monitoring. We would be happy to see her for a telehealth visit in our Diabetes clinic if needed. #Anemia in previous #History of microcytosis. She was evaluated in 2011 for microcytosis with bone marrow biopsy and has previously seen hematology at [facility]. She required IV iron in previous . Her current ferritin is normal at 59. Keep ferritin above 50. Recheck every trimester #ADHD/ Depression/ Anxiety #History of Bipolar disorder She is on an SSRI for anxiety and is followed closely by her PCP. She was previously counseled on risk and benefit of SSRI in . Her current dose is 100 mg. She is not currently on medication for her ADHD. She was on ritalin prior to . Her symptoms are worsening. Discussed that it is important to take into consideration the patient's symptom severity as well asother treatment options when making the decision to continue use or stop use in . Stimulants (methylphenidate, amphetamines): Current evidence does not show a significant increase in major congenital anomalies with either agent. Methylphenidate may be associated with a small increased risk of cardiac malformations, while amphetamines may slightly increase the risk of goyo h and other complications. Methylphenidate is generally preferred over amphetamines in , particularly because it is compatible with , whereas amphetamines are not. If stimulants are required, the lowest effective dose should be used, and therapy should be re-evaluated regularly. ADHD therapy should not be withheld if needed for maternal health and well being. #GERD/ hiatal hernia Worse in this . She was given a RX for protonix and reglan by MFM at her last visit. Her symptoms have improved with the reglan. Follow up with MFM for growth ultrasound / completion of anatomy and MFM consult in 4 weeks. This has been scheduled. Total time spent in patient care was 60 minutes. Thank you for referring your patient. Please do not hesitate to contact me with any questions. Chloe Keys MD 2:56 PM 05/18/2025 * Liss Urbina CMA - 05/18/2025 2:30 PM PDT Lab Specimen Collection Reviewed Orders Yes Orders in [facility] by Chloe Keys MD Test [id number] Consulted Online lab test guide, or called the lab, for collection protocol.Yes Time Out Pre-Procedure Verification Performed.Yes Venipuncture performed using a: 21GA Vacutainer Needle Site LAC Tubes drawn 2 SST tubes Collection time: 1445 Pt tolerated procedure w/o problem. Specimens labeled in patient's presence; bagged & sent to lab via [facility] complaint adjuster. * Zahira Saravia, Surendra - 05/18/2025 2:30 PM PDT GA 36wks = 09/07/25 No template yet available for August, will schedule when available * Zahira Saravia, Coordinator - 05/18/2025 2:30 PM PDT No template available, will schedule when available documented in this encounter Plan of Treatment Upcoming Encounters Date Type Department Care Team (Late st Contact Info) Description 09/06/2025 1:00 PM PST Appointment OB [place]aternal Medicine [place] [facility] [address] [facility], [id number] [place] [phone] 09/06/2025 2:00 PM PST Clinical Support Visit Maternal Medicine at [address], [address] [place] [id number] 09/06/2025 2:20 PM PST [place] [facility] [address] [place] [address], [address] [place] [phone] Chloe Keys MD [address] [place] [id number] [place] [phone] 09/21/2025 11:00 AM PST Appointment [facility] Labor and Delivery [facility] [place] [address] Scheduled Orders Name Type Priority Associated Diagnoses Orde r Schedule US OB Follow Up Imaging Routine Obesity in (HCC) Chronic hypertension in (HCC) Every 4 weeks for 6 Occurrences starting 05/18/2025 until 06/17/2026, 3 completed documented as of this encounter Goals Goal Patient Goal Type Associated Problems Recent Progress Patient-Stated? Author Reminders Care Plan OB Reminders No Manuel Geiger User documented as of this encounter Procedures Procedure Name Priority Date/Time Associated Diagnosis Comments SCREEN, SERUM AFP (GA [id number]) (SENDOUT) Routine 05/18/2025 2:50 PM PDT Obesity in (HCC) 1ST EXTRA GOLD TOP Routine 05/18/2025 2: 50 PM PDT documented in this encounter Results * US OB Follow Up (08/10/2025 3:03 PM PST) Anatomical Region Laterality Modality Uterus N/A Ultrasound 08/10/2025 2:32 PM PST Impressions 08/10/2025 3:20 PM PST ========= 1. Single IUP at 32w 0d by MARGUERITE of 10/05/2025. 2. Interval Growth is normal. EFW is 2015 g (59%) with an AC at 88%. 3. Presentation: cephalic. 4. Placenta: posterior. 5. Amniotic fluid is normal, YUDITH is 15.4 cm, MVP is 6 cm. Recommendations: 1. Follow up growth every 4 weeks 2. Continue twice weekly NST Chloe Keys Attending Kylie Paul Lathe Sander I have personally reviewed the images and agree with the report (or as edited). Narrative 08/10/2025 3:20 PM PST Indication ======== chronic hypertension on medication, Obesity in . Anatomy completed on: 06/15/2025 Method ====== Follow up 2nd/3rd trimester obstetrical ultrasound. View: Satisfactory view. Growth Overview Exam date GA BPD (mm) HC (mm) AC (mm) FL (mm) HL (mm) EFW (g) 04/13/2025 15w 0d 27 29% 103 25% 89 59% 16 33% 16 34% 110 32% 05/18/2025 20w 0d 43 13% 159 15% 149 50% 33 54% 29 34% 329 48% 06/15/2025 24w 0d 53 2% 200 8% 196 50% 42 27% 624 30% 07/13/2025 28w 0d 66 6% 247 15% 242 57% 52 27% 1149 35% 08/10/2025 32w 0d 78 21% 288 27% 296 88% 61 28% 2014 59% ========= Chester . Number of fetuses: 1 Dating ====== LMP on: 12/29/2024 GA by LMP 32 w + 0 d MARGUERITE by LMP: 10/05/2025 Prior assessment by: 1st trimester ultrasound GA by prior assessment 29 w + 6 d MARGUERITE by prior assessment: 10/20/2025 Ultrasound examination on: 08/10/2025 GA by U/S based upon: AC, BPD, Femur, HC GA by U/S 31 w + 6 d MARGUERITE by U/S: 10/06/2025 Assigned: based on the LMP, selected on 04/13/2025 Assigned GA 32 w + 0 d Assigned MARGUERITE: 10/05/2025 General Evaluation Cardiac activity present. FHR 142 bpm. movements: visualized. Presentation: cephalic Placenta: Placental site: posterior Amniotic fluid: Amount of AF: normal. MVP 6.0 cm. YUDITH 15.4 cm. Q1 6.0 cm, Q2 4.8 cm, Q3 4.6 cm, Q4 0.0 cm Biometry Standard BPD 78.0 mm 31w 2d 21% HC 288.0 mm 30w 6d 27% AC 296.0 mm 33w 4d 88% Femur 61.0 mm 31w 5d 28% EFW 2,015 g 59% EFW (lb) 4 lb EFW (oz) 7 oz EFW by: Hadlock ([id number]) Urinary Tract Rt Kidney long 40.0 mm 63% Lt Kidney long 40.0 mm 63% Other Structures FHR 142 bpm Anatomy Lateral ventricles: normal Stomach: normal Kidneys: normal Bladder: normal Procedure Note Chloe Keys MD - 08/10/2025 Indication ======== chronic hypertension on medication, Obesity in . Anatomy completed on: 06/15/2025 Method ====== Follow up 2nd/3rd trimester obstetrical ultrasound. View: Satisfactoryview. Growth Overview Exam date GA BPD (mm) HC (mm) AC(mm) FL (mm) HL (mm) EFW (g) 04/13/2025 15w 0d 27 29% 103 25% 8959% 16 33% 16 34% 110 32% 05/18/2025 20w 0d 43 13% 159 15% 04097% 33 54% 29 34% 329 48% 06/15/2025 24w 0d 53 2% 200 8% 18093% 42 27% 624 30% 07/13/2025 28w 0d 66 6% 247 15% 25323% 52 27% 1149 35% 08/10/2025 32w 0d 78 21% 288 27% 59254% 61 28% 2015 59% ========= Chester . Number of fetuses: 1 Dating ====== LMP on:12/29/2024 GA by [email or web address] w + 0 d MARGUERITE by LMP:10/05/2025 Prior assessment by:1st trimester ultrasound GA by prior [email or web address] w + 6 d MARGUERITE by prior assessment:10/20/2025 Ultrasound examination on:08/10/2025 GA by U/S based upon:AC, BPD, Femur, HC GA by U/S31 w + 6 d MARGUERITE by U/S:10/06/2025 Assigned:based on the LMP, selected on 04/13/2025 Assigned GA32 w + 0 d Assigned MARGUERITE:10/05/2025 General Evaluation Cardiac activity present. FHR 142 bpm. movements: visualized.Presentation: cephalic Placenta: Placental site: posterior Amniotic fluid: Amount of AF: normal. MVP 6.0 cm. YUDITH 15.4 cm. Q1 6.0 cm,Q2 4.8 cm, Q3 4.6 cm, Q4 0.0 cm Biometry Standard BPD78.0 mm31w 2d 21% HC288.0 mm30w 6d 27% AC296.0 mm33w 4d 88% Femur61.0 mm31w 5d 28% EFW2,015 g 59% EFW (lb)4 lb EFW (oz)7 oz EFW by:Naga ([id number]) Urinary Tract Rt Kidney long40.0 mm 63% Lt Kidney long40.0 mm 63% Other Structures [id number] bpm Anatomy Lateral ventricles:normal Stomach:normal Kidneys:normal Bladder:normal IMPRESSION ========= 1. Single IUP at 32w 0d by MARGUERITE of 10/05/2025. 2. Interval Growth is normal. EFW is 2015 g (59%) with an AC at 88%. 3. Presentation: cephalic. 4. Placenta: posterior. 5. Amniotic fluid is normal, YUDITH is 15.4 cm, MVP is 6 cm. Recommendations: 1. Follow up growth every 4 weeks 2. Continue twice weekly NST Chloe Keys Attending Kylie Paul Lathe Sander I have personally reviewed the images and agree with the report (or asedited). us Chloe Keys MD IMG OB US PROCEDURES Final Resul t * US OB Follow Up (07/13/2025 1:26 PM PST) Anatomical Region Laterality Modality Uterus N/A Ultrasound 07/13/2025 1:06 PM PST Impressions 07/13/2025 1:46 PM PST ========= 1. Single IUP at 28w 0d by MARGUERITE of 10/05/2025. 2. Interval Growth is normal. EFW is 1149 g (35%) with an AC at 57%. 3. Presentation: breech. 4. Placenta: posterior. 5. Amniotic fluid is normal, YUDITH is 18.4 cm, MVP is 7.1 cm. Chloe Keys Attending Kylie Paul Lathe Sander I have personally reviewed the images and agree with the report (or as edited). Narrative 07/13/2025 1:46 PM PST Indication ======== chronic hypertension on medication, Obesity in . Anatomy completed on: 06/15/25 Method ====== Follow up 2nd/3rd trimester obstetrical ultrasound. View: Persistent unsatisfactory imaging due to patient scanning characteristics and high BMI Growth Overview Exam date GA BPD (mm) HC (mm) AC (mm) FL (mm) HL (mm) EFW (g) 04/13/2025 15w 0d 27 29% 103 25% 89 59% 16 33% 16 34% 110 32% 05/18/2025 20w 0d 43 13% 159 15% 149 50% 33 54% 29 34% 329 48% 06/15/2025 24w 0d 53 2% 200 8% 196 50% 42 27% 624 30% 07/13/2025 28w 0d 66 6% 247 15% 242 57% 52 27% 1149 35% ========= Chester . Number of fetuses: 1 Dating ====== LMP on: 12/29/2024 GA by LMP 28 w + 0 d MARGUERITE by LMP: 10/05/2025 Prior assessment by: 1st trimester ultrasound GA by prior assessment 25 w + 6 d MARGUERITE by prior assessment: 10/20/2025 Ultrasound examination on: 07/13/2025 GA by U/S based upon: AC, BPD, Femur, HC GA by U/S 27 w + 2 d MARGUERITE by U/S: 10/10/2025 Assigned: based on the LMP, selected on 04/13/2025 Assigned GA 28 w + 0 d Assigned MARGUERITE: 10/05/2025 General Evaluation Cardiac activity present. FHR 135 bpm. movements: visualized. Presentation: breech Placenta: Placental site: posterior Amniotic fluid: Amount of AF: normal. MVP 7.1 cm. YUDITH 18.4 cm. Q1 4.9 cm, Q2 6.4 cm, Q3 7.1 cm, Q4 0.0 cm Biometry Standard BPD 66.0 mm 26w 4d 6% HC 247.0 mm 26w 4d 15% AC 242.0 mm 28w 3d 57% Femur 52.0 mm 27w 5d 27% EFW 1,149 g 35% EFW (lb) 2 lb EFW (oz) 9 oz EFW by: Hadlock ([id number]) Head / Face / Neck LLV 3.5 mm Urinary Tract Rt Kidney long 32.0 mm 34% Lt Kidney long 33.0 mm 45% Other Structures FHR 135 bpm Anatomy Lateral ventricles: normal Stomach: normal Kidneys: normal Bladder: normal Follow-up ======== Recommend ultrasound for growth in 4 weeks. Start twice weekly NST at 32 weeks. Procedure Note Chloe Keys MD - 07/13/2025 Indication ======== chronic hypertension on medication, Obesity in . Anatomy completed on: 06/15/25 Method ====== Follow up 2nd/3rd trimester obstetrical ultrasound. View: Persistentunsatisfactory imaging due to patient scanning characteristics and highBMI Growth Overview Exam date GA BPD (mm) HC (mm) AC(mm) FL (mm) HL (mm) EFW (g) 04/13/2025 15w 0d 27 29% 103 25% 8959% 16 33% 16 34% 110 32% 05/18/2025 20w 0d 43 13% 159 15% 17543% 33 54% 29 34% 329 48% 06/15/2025 24w 0d 53 2% 200 8% 86048% 42 27% 624 30% 07/13/2025 28w 0d 66 6% 247 15% 08743% 52 27% 1149 35% ========= Chester . Number of fetuses: 1 Dating ====== LMP on:12/29/2024 GA by [id number] w + 0 d MARGUERITE by LMP:10/05/2025 Prior assessment by:1st trimester ultrasound GA by prior [email or web address] w + 6 d MARGUERITE by prior assessment:10/20/2025 Ultrasound examination on:07/13/2025 GA by U/S based upon:AC, BPD, Femur, HC GA by U/S27 w + 2 d MARGUERITE by U/S:10/10/2025 Assigned:based on the LMP, selected on 04/13/2025 Assigned GA28 w + 0 d Assigned MARGUERITE:10/05/2025 General Evaluation Cardiac activity present. FHR 135 bpm. movements: visualized.Presentation: breech Placenta: Placental site: posterior Amniotic fluid: Amount of AF: normal. MVP 7.1 cm. YUDITH 18.4 cm. Q1 4.9 cm,Q2 6.4 cm, Q3 7.1 cm, Q4 0.0 cm Biometry Standard BPD66.0 mm26w 4d 6% HC247.0 mm26w 4d 15% AC242.0 mm28w 3d 57% Femur52.0 mm27w 5d 27% EFW1,149 g 35% EFW (lb)2 lb EFW (oz)9 oz EFW by:Naga ([id number]) Head / Face / Neck LLV3.5 mm Urinary Tract Rt Kidney long32.0 mm 34% Lt Kidney long33.0 mm 45% Other Structures [id number] bpm Anatomy Lateral ventricles:normal Stomach:normal Kidneys:normal Bladder:normal Follow-up ======== Recommend ultrasound for growth in 4 weeks. Start twice weekly NST at 32 weeks. IMPRESSION ========= 1. Single IUP at 28w 0d by MARGUERITE of 10/05/2025. 2. Interval Growth is normal. EFW is 1149 g (35%) with an AC at 57%. 3. Presentation: breech. 4. Placenta: posterior. 5. Amniotic fluid is normal, YUDITH is 18.4 cm, MVP is 7.1 cm. Chloe Keys Attending Kylie Palu Lathe Sander I have personally reviewed the images and agree with the report (or asedited). us Chloe Keys MD IMG OB US PROCEDURES Final Resul t * US OB Follow Up (06/15/2025 3:55 PM PDT) Anatomical Region Laterality Modality Uterus N/A Ultrasound 06/15/2025 3:06 PM PDT Impressions 06/15/2025 3:56 PM PDT ========= 1. Single IUP at 24w 0d by MARGUERITE of 10/05/2025. 2. Interval Growth is normal. EFW is 624 g (30%) with an AC at 50%. 3. Presentation: cephalic. 4. Placenta: posterior, circumvallate. 5. Amniotic fluid is normal, MVP is 4.8 cm. 6. The following anatomy was visualized as normal today: lips, nose, heart, lungs, cord insertion, spine, feet and lower arms. Chloe Keys Attending Kylie Paul Lathe Sander I have personally reviewed the images and agree with the report (or as edited). Narrative 06/15/2025 3:56 PM PDT Indication ======== chronic hypertension on medication, Obesity in . Anatomy not seen on prior: lips, nose, heart,lungs, cord insertion, spine, feet and lower arms. Method ====== Follow up 2nd/3rd trimester obstetrical ultrasound. View: Persistent unsatisfactory imaging due to patient scanning characteristics and high BMI. Growth Overview Exam date GA BPD (mm) HC (mm) AC (mm) FL (mm) HL (mm) EFW (g) 04/13/2025 15w 0d 27 29% 103 25% 89 59% 16 33% 16 34% 110 32% 05/18/2025 20w 0d 43 13% 159 15% 149 50% 33 54% 29 34% 329 48% 06/15/2025 24w 0d 53 2% 200 8% 196 50% 42 27% 624 30% ========= [place] . Number of fetuses: 1 Dating ====== LMP on: 12/29/2024 GA by LMP 24 w + 0 d MARGUERITE by LMP: 10/05/2025 Prior assessment by: 1st trimester ultrasound GA by prior assessment 21 w + 6 d MARGUERITE by prior assessment: 10/20/2025 Ultrasound examination on: 06/15/2025 GA by U/S based upon: AC, BPD, Femur, HC GA by U/S 23 w + 1 d MARGUERITE by U/S: 10/11/2025 Assigned: based on the LMP, selected on 04/13/2025 Assigned GA 24 w + 0 d Assigned MARGUERITE: 10/05/2025 General Evaluation Cardiac activity present. FHR 155 bpm. movements: visualized. Presentation: cephalic Placenta: Placental site: posterior, circumvallate Umbilical cord: Insertion site: marginal insertion Amniotic fluid: Amount of AF: normal. MVP 4.8 cm Biometry Standard BPD 53.0 mm 22w 1d 2% HC 200.0 mm 22w 1d 8% AC 196.0 mm 24w 2d 50% Femur 42.0 mm 23w 5d 27% EFW 624 g 30% EFW (lb) 1 lb EFW (oz) 6 oz EFW by: Hadlock ([id number]) Head / Face / Neck RLV 68.0 mm Urinary Tract Rt Kidney long 24.0 mm 14% Lt Kidney long 24.0 mm 14% Other Structures FHR 155 bpm Anatomy Lateral ventricles: normal Lips: normal Profile: normal Nose: normal 4-chamber view: normal RVOT view: normal LVOT view: normal 3-vessel view: normal 3-axbmhp-nndjbqh view: normal Heart / Thorax Aortic arch view: normal Ductal arch view: normal SVC: normal IVC: normal Rt lung: normal Lt lung: normal Cord insertion: normal Stomach: normal Kidneys: normal Bladder: normal Cervical spine: normal Thoracic spine: normal Lumbar spine: normal Sacral spine: normal Feet: normal Rt forearm: normal Lt forearm: normal Maternal Structures Uterus / Cervix Cervix: Visualized Cervix details: normal Approach: Transabdominal Cervical length 41.0 mm Procedure Note Chloe Keys MD - 06/15/2025 Indication ======== chronic hypertension on medication, Obesity in . Anatomy not seen on prior: lips, nose, heart,lungs, cord insertion, spine,feet and lower arms. Method ====== Follow up 2nd/3rd trimester obstetrical ultrasound. View: Persistentunsatisfactory imaging due to patient scanning characteristics and highBMI. Growth Overview Exam date GA BPD (mm) HC (mm) AC(mm) FL (mm) HL (mm) EFW (g) 04/13/2025 15w 0d 27 29% 103 25% 8959% 16 33% 16 34% 110 32% 05/18/2025 20w 0d 43 13% 159 15% 79725% 33 54% 29 34% 329 48% 06/15/2025 24w 0d 53 2% 200 8% 53831% 42 27% 624 30% ========= [place] . Number of fetuses: 1 Dating ====== LMP on:12/29/2024 GA by [email or web address] w + 0 d MARGUERITE by LMP:10/05/2025 Prior assessment by:1st trimester ultrasound GA by prior [email or web address] w + 6 d MARGUERITE by prior assessment:10/20/2025 Ultrasound examination on:06/15/2025 GA by U/S based upon:AC, BPD, Femur, HC GA by U/S23 w + 1 d MARGUERITE by U/S:10/11/2025 Assigned:based on the LMP, selected on 04/13/2025 Assigned [email or web address] w + 0 d Assigned MARGUERITE:10/05/2025 General Evaluation Cardiac activity present. FHR 155 bpm. movements: visualized.Presentation: cephalic Placenta: Placental site: posterior, circumvallate Umbilical cord: Insertion site: marginal insertion Amniotic fluid: Amount of AF: normal. MVP 4.8 cm Biometry Standard BPD53.0 mm22w 1d 2% HC200.0 mm22w 1d 8% AC196.0 mm24w 2d 50% Femur42.0 mm23w 5d 27% LFP821 g 30% EFW (lb)1 lb EFW (oz)6 oz EFW by:Hadlock ([id number]-FL) Head / Face / Neck RLV68.0 mm Urinary Tract Rt Kidney long24.0 mm 14% Lt Kidney long24.0 mm 14% Other Structures CCO700 bpm Anatomy Lateral ventricles:normal Lips:normal Profile:normal Nose:normal 4-chamber view:normal RVOT view:normal LVOT view:normal 3-vessel view:normal 4-wtksva-dlwoyoi view:normal Heart / Thorax Aortic arch view:normal Ductal arch view:normal SVC:normal IVC:normal Rt lung:normal Lt lung:normal Cord insertion:normal Stomach:normal Kidneys:normal Bladder:normal Cervical spine:normal Thoracic spine:normal Lumbar spine:normal Sacral spine:normal Feet:normal Rt forearm:normal Lt forearm:normal Maternal Structures Uterus / Cervix Cervix:Visualized Cervix details:normal Approach:Transabdominal Cervical rilliq39.0 mm IMPRESSION ========= 1. Single IUP at 24w 0d by MARGUERITE of 10/05/2025. 2. Interval Growth is normal. EFW is 624 g (30%) with an AC at 50%. 3. Presentation: cephalic. 4. Placenta: posterior, circumvallate. 5. Amniotic fluid is normal, MVP is 4.8 cm. 6. The following anatomy was visualized as normal today: lips, nose,heart, lungs, cord insertion, spine, feet and lower arms. Chloe Keys Attending Kylie Paul Lathe Sander I have personally reviewed the images and agree with the report (or asedited). Chloe Keys MD IMG OB US PROCEDURES Final Resul t * 1st Extra Gold Top (05/18/2025 2:50 PM PDT) 1st Extra Gold Top Additional collection tube 05/19/2025 12:[address] [facility] Dept of Lab Med Serum 05/18/2025 2:50 PM PDT 05/18/2025 11:05 PM PDT Chloe Keys MD LAB BLOOD ORDERABLES Final Resul t [facility] DEPT OF LAB MED [address] [facility] [place] [id number] [place] [address] [facility] Dept of Lab Med [address] [facility] [place] [address] [place] [address] * Screen, Serum AFP (GA 14w-24w6d) (Sendout) (05/18/2025 2:50 PM PDT) Patient Date of 1991062305/18/2025 2:50 PM PDT OUTSIDE REFERENCE PERFORMING LAB Patient Weight 141.5 kg (312 lb) 05/18/2025 2:50 PM PDT OUTSIDE REFERENCE PERFORMING LAB Weight Units (lbs or kg) Not provided 05/18/2025 2:50 PM PDT OUTSIDE REFERENCE PERFORMING LAB MARGUERITE (Estimated Due Date) 2025100505/18/2025 2:50 PM PDT OUTSIDE REFERENCE PERFORMING LAB MARGUERITE Dating Method LMP confirmed by US 05/18/2025 2:50 PM PDT [facility]SIDE [facility]ENCE PERFORMING LAB LMP (Last Menstrual Period) Not provided 05/18/2025 2:50 PM PDT [facility]FORMING [facility] Number of Fetuses 1 025 2:50 PM PDT OUTSIDE [facility]FORMING [facility] Patient Race Not provided 05/18/2025 2:50 PM PDT [facility]SIDE [facility] PERFORMING LAB Insulin Dependent Diabetes? No 05/18/2025 2:50 PM PDT OUTSIDE REFERENCE PERFORMING LAB Current Cigarette Smoker? Unknown 05/18/2025 2:50 PM PDT OUTSIDE REFERENCE PERFORMING LAB Patient taking Valproic Acid or Carbamazepine? No 05/18/2025 2:50 PM PDT OUTSIDE REFERENCE PERFORMING LAB Family History of NTD (Neural Tube Defects)? No 05/18/2025 2:50 PM PDT OUTSIDE REFERENCE PERFORMING LAB In Vitro Fertilization (IVF) ? No 05/18/2025 2:50 PM PDT OUTSIDE REFERENCE PERFORMING LAB Donor Egg Age at [place]? Not provided years 05/18/2025 2:50 PM PDT OUTSIDE REFERENCE PERFORMING LAB Repeat Specimen? No 05/18/20 2:50 PM PDT OUTSIDE REFERENCE PERFORMING LAB AFP 22 ng/mL 05/21/2025 12:17 PM PDT Outside Reference Performing Lab MoM for AFP 0.60 05/21/2025 12:17 PM PDT Outside Reference Performing Lab Maternal Screen Interpretation Screen Neg SCRNEG 05/21/2025 12:17 PM PDT Outside Reference Performing Lab Comment: (NOTE) INTERPRETATION: SCREEN NEGATIVE for open spina bifida Neural Tube Defects (NTD) Negative Pre-Test Post-Test Cutoff Neural Tube Defects Risks 1:1030 < 1:82220 1:250 Comments: The risk of an open neural tube defect is less than the screening cut-off. This test was developed and its performance characteristics determined by [facility]. It has not been cleared or approved by the US Food and Drug Administration. This test was performed in a CLIA certified laboratory and is intended for clinical purposes. [age] at Delivery 34.3 years 05/21/2025 12:17 PM PDT Outside Reference Performing Lab Patient Weight 312.0 lbs. 05/21/2025 12:17 PM PDT Outside Reference Performing Lab Estimated Due Date SEE NOTE 2024 12:17 PM PDT Outside Reference Performing Lab Comment: (NOTE) Results for Estimated Due Date: 10-05-25 Gestational Age Calculated at Collection 20 wks, 0 days 05/21/2025 12:17 PM PDT Outside Reference Performing Lab Dating Method LMP CONF by US 05/21/2025 12:17 PM PDT Outside Reference Performing Lab Number of Fetuses [place] 025 12:17 PM PDT Outside Reference Performing Lab Insulin Dependent Diabetes No 05/21/2025 12:17 PM PDT Outside Reference Performing Lab Smoker Unknown 05/21/2025 12:17 PM PDT Outside Reference Performing Lab Family History of Neural Tube Defect No 05/21/2025 12:17 PM PDT Outside Reference Performing Lab Initial or Repeat Specimen See Note 05/21/2025 12:17 PM PDT Outside Reference Performing Lab Comment: (NOTE) Initial sample Performed By: [facility] [address] [place] [id number] Statistical Developer: Carson Churchill MD, PhD CLIA Number: [id number] Blood 05/18/2025 2:50 PM PDT Chloe Keys MD LAB BLOOD ORDERABLES Final Resul t OUTSIDE REFERENCE PERFORMING LAB (See Results) documented in this encounter Visit Diagnoses Diagnosis Obesity in (HCC)- Primary Obesity complicating , childbirth, or the puerperium, unspecified as to episode of care or not applicable Chronic hypertension in (HCC) Benign essential hypertension complicating , childbirth, and the puerperium, unspecified as to episode of care Obesity in (HCC) Obesity complicating , childbirth, or the puerperium, unspecified as to episode of care or not applicable Chronic hypertension in (HCC) Benign essential hypertension complicating , childbirth, and the puerperium, unspecified as to episode of care Obesity in (HCC) Obesity complicating , childbirth, or the puerperium, unspecified as to episode of care or not applicable Chronic hypertension in (HCC) Benign essential hypertension complicating , childbirth, and the puerperium, unspecified as to episode of care Obesity in (HCC) Obesity complicating , childbirth, or the puerperium, unspecified as to episode of care or not applicable Chronic hypertension in (HCC) Benign essential hypertension complicating , childbirth, and the puerperium, unspecified as to episode of care documented in this encounter Additional Health Concerns Active Problems Noted Date Diagnosed Date OB Reminders 04/11/2025 Assessment Noted Time PHQ-9 Depression Total Score: 25 015 8:59 AM PDT documented as of this encounter Care Teams Shirt Maker Relationship Specialty Start Date End Date Laura De La Rosa ARNP [address] [place] [address] [phone] PCP - General Nurse Practitioner 07/29/17 Kristine Wasserman RN Medical Oncology 04/25/15 Dara Ramírez RN [address], [address] [place] [address] Medical Oncology 10/13/15 Poornima Bach, LD [address], [address] [place] [address] Medical Oncology 10/13/15 Chandu Claudio LPN [address], [address] [place] [address] Infusion Medical Oncology 10/16/15 Gretel Viera ARNP [address] [place], [place] [address] Nurse Practitioner 12/25/15 documented as of this encounter
== END 2025-08-23 11:48 | disposition home or self-care (01) ==
LOC: LABOR 11:25 → OB 12:01
PROVIDERS: PCP Family Medicine; Referring Provider Obstetrics & Gynecology; Visit Provider Obstetrics & Gynecology
DX: O24.113 Pre-existing type 2 diabetes mellitus, in pregnancy, third trimester (principal); Z3A.33 33 weeks gestation of pregnancy; Z79.4 Long term (current) use of insulin
CPT/HCPCS: 59025; G0378; G0379